=== PATIENT | female | born 1955 | race Caucasian/White ===

== ENCOUNTER 2019-11-22 09:27 | Outpatient (CLI) | payer OTHER, SELFPAY ==
--- NOTE | ~2019-11-22 | US_ITS ---
US thyroid INDICATION: Follow-up thyroid nodules previous benign biopsy of left thyroid nodules. TECHNIQUE: Real-time sonographic images of the thyroid gland were obtained. COMPARISON: Ultrasound dated 01/18/2019 FINDINGS: The right thyroid lobe measures 4.5 x 1.9 x 1.4 cm. The left thyroid lobe measures 4.7 x 2 .2 x 2.1 cm. There is normal echotexture and echogenicity throughout the thyroid gland. There are sta ble left thyroid nodules, largest measuring 2.5 x 2.3 x 1.7 cm and smaller measuring 1.3 x 1.3 x 1.1 cm.. Normal vascular flow is present. IMPRESSION: 1. Stable left thyroid nodules which were previously biopsied and proven benign. Reviewed, dictated and finalized at location A. IMPRESSION: 1. Stable left thyroid nodules which were previously biopsied and proven donald estrada
== END 2019-11-22 09:28 | disposition home or self-care (01) ==
PROVIDERS: PCP Family Medicine; Visit Provider Otolaryngology
DX: E04.1 Nontoxic single thyroid nodule (principal)
CPT/HCPCS: 76536

== ENCOUNTER 2020-01-03 15:58 | Outpatient (CLI) | payer OTHER, SELFPAY ==
--- NOTE | ~2020-01-03 | XR_ITS ---
EXAMINATION: XR shoulder LT min 2V DATE: 01/03/2020 16:18 INDICATION: Left shoulder pain. TECHNIQUE: 4 views of left shoulder were obtained. COMPARISON: None. FINDINGS: Bone alignment is normal. No fracture. There is mild osteoarthritis of glenohumeral joint a nd moderate osteoarthritis of acromioclavicular joint. Calcified pulmonary nodules are consistent wit h old granulomatous disease. IMPRESSION: 1. Polyarticular osteoarthritis. Reviewed, dictated and finalized at location A.
== END 2020-01-03 15:59 | disposition home or self-care (01) ==
PROVIDERS: PCP Family Medicine; Visit Provider Family Medicine
DX: M19.012 Primary osteoarthritis, left shoulder (principal)
CPT/HCPCS: 73030

== ENCOUNTER 2020-04-08 15:00 | Outpatient (RCR) | payer OTHER, SELFPAY ==
--- NOTE | 2020-02-13 17:26 | PTOPEVAL ---
PHYSICAL THERAPY EVALUATION AND PLAN OF CARE Thank you for referring Eleni Cormier to [facility].? The patient is scheduled to be seen for therapy?1-2x/week for 4-6 weeks. Range in frequency to accommodate patient's work schedule. Please review, sign, date and return this plan of care CARROLL. I agree with and certify that the following plan of care is medically necessary. Referring Physician Date Attending Provider: Tom Hardin MD Evaluation Diagnosis left shoulder pain Onset 06/2019 Subjective Information Eleni is here today reporting Query Text:As Reported By Patient/ left shoulder pain with pain Family that radiates to the upper arm. She had a cortisone injection that helped really well for 2 days and the pain returned with less intensity. She saw her chiropractor and that helped really but also the pain returned. She has significant pain while trying to sleep. She does not like to lift with the arm and she elevates that arm with caution. Self Report Pain Assessment Left Shoulder(s) Reported Pain Level 3 Pain Description Aching,Radiating Pain Radiation Left Arm Pain Frequency Chronic,Continuous Lowest Pain Intensity 2 Greatest Pain Intensity 10 Pain Aggravating Factors Lifting Pain Score Pain Score 3: Self Report Upper Extremity Range of Motion Scapular/ Shoulder Range of Motion Left Shoulder Flexion - Active 135 Shoulder Abduction - Active 85 Shoulder Medial Rotation - Active L2 Query Text:Reach Behind the Back Shoulder Lateral Rotation - Active 32 Scapular/Shoulder Range of Motion post treatment: flexion: Comments 155deg abductin: 140deg Upper Extremity Muscle Strength Testing Scapular/Shoulder Left Shoulder Flexion Strength 4- Good - Shoulder Abduction Strength 4- Good - Shoulder Medial Rotation Strength 3+ Fair + Shoulder Lateral Rotation Strength 4 Good Posture Thoracic Spine Posture Neutral Shoulder Posture (L) Rounded,(L) Forward Scapula Posture (L) Protracted Palpation significant trigger points noted to left upper trapezius and supraspinatus and middle and posterior deltoid Special Tests-Upper Extremity Shoulder Special Tests Empty Can (supraspinatus) Test Negative Left Painful Arc
--- NOTE | 2020-03-05 07:24 | PCPTNOTE ---
Patient called & cancelled scheduled appointment this date due to having to work.
--- NOTE | 2020-03-25 17:08 | PTOPEVAL ---
PHYSICAL THERAPY PLAN OF CARE UPDATE AND PROGRESS REPORT Thank you for referring Eleni Cormier to [facility].? The patient is scheduled to be seen for therapy? 2x/week for 4 weeks. Please review, sign, date and return this plan of care CARROLL. I agree with and certify that the following plan of care is medically necessary. 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 Self Report Pain Assessment Left Shoulder(s) Reported Pain Level 3 Pain Description Aching Pain Score Pain Score 3: Self Report Additional Pain Score Comments pain goes up and down Scapular/ Shoulder Range of Motion Left Shoulder Flexion - Active 140 Shoulder Abduction - Active 110 Shoulder Medial Rotation - Active L2 Query Text:Reach Behind the Back Shoulder Lateral Rotation - Active 60 Shoulder Lateral Rotation - Active T1 Query Text:Reach Behind the Head Scapular/Shoulder Range of Motion post treatment: flexion: Comments 155deg abductin: 140deg Upper Extremity Muscle Strength Testing Scapular/Shoulder Left Shoulder Flexion Strength 4- Good - Shoulder Abduction Strength 4- Good - Shoulder Medial Rotation Strength 4- Good - Shoulder Lateral Rotation Strength 4 Good Muscle Length Testing Muscle Length Testing Shoulder Internal Rotators Muscle Length (L) Moderate Tightness Shoulder External Rotators Muscle Length (L) Severe Tightness Pectoralis Major Muscle Length (L) Severe Tightness Palpation significant trigger points noted to left upper trapezius and supraspinatus; PT Clinical Summary Eleni is a 64 yo female participating in outpatient physical therapy with chronic left shoulder pain. She demonstrates progress toward meeting functional goals, but continues to be present with significant deficits, especially in abduction and internal rotation. We will continue PT 2x/week for 4 weeks. PT Services Indicated Yes [facility] [place]
--- NOTE | 2020-03-27 07:58 | PCPTNOTE ---
Pt cancelled appointment for 8:00, 03/27/2020 due to not feeling well/sick.
--- NOTE | 2020-04-10 16:53 | PCPTNOTE ---
Patient called & cancelled scheduled appointment this date per patient's request.
--- NOTE | 2020-04-23 14:10 | PCPTNOTE ---
Addendum entered by Loan Duarte, PT, DPT 04/23/20 14:47: Patient returned phone call and scheduled appointments. Original Note: Called and left voicemail to follow-up with patient about further appointments and scheduling.
--- NOTE | 2020-04-28 17:39 | PCPTNOTE ---
Patient did not show up for scheduled appointment this date. Called and informed her of missed appointment and that she has no further appointments scheduled. To please call back and discuss plan of care.
--- NOTE | 2020-05-07 13:50 | PCPTNOTE ---
This treatment is being continued on visit number [id number]. Please see documentation on both accounts to view progress. Completed interventions, outcomes, and problems have been marked as Inactive to facilitate the copying of the Care plan routine for recurring accounts.
== END 2020-05-07 09:18 | disposition home or self-care (01) ==
LOC: ANHPT 15:00
PROVIDERS: PCP Family Medicine; Visit Provider Orthopaedic Surgery
DX: M75.42 Impingement syndrome of left shoulder (principal)
CPT/HCPCS: 97110; 97140; 97161

== ENCOUNTER 2020-05-15 08:22 | Outpatient (RCR) | payer OTHER, SELFPAY ==
--- NOTE | 2020-05-07 13:50 | PCPTNOTE ---
The treatment documented on this account is a continuation of the treatment documented on visit number [id number]. Please see documentation on both accounts to view progress. The Plan of Care has been transitioned and updated within the new V#. I have addressed and agree with the discipline specific Problems, Interventions, and Goals for the current certification period. Completed interventions, outcomes, and problems have been marked as Inactive to facilitate the copying of the Care plan routine for recurring accounts.
--- NOTE | 2020-05-15 15:55 | PTOPEVAL ---
PHYSICAL THERAPY PLAN OF CARE UPDATE Thank you for referring Eleni Cormier to [facility].? The patient is scheduled to be seen for therapy? 1-2x/MONTH for 1month. Please review, sign, date and return this plan of care CARROLL. I agree with and certify that the following plan of care is medically necessary. Referring Physician Date Attending Provider: Tom Hardin MD Diagnosis left shoulder pain Onset 06/2019 Subjective Information Eelni reports she has been Query Text:As Reported By Patient/ working very hard on her Family exercises and feels like she is doing well. Continues to be very tight and still cannot unhook her bra in the back. Self Report Pain Assessment Left Shoulder(s) Reported Pain Level 2 Pain Description Aching,Tightness Pain Score Pain Score 2: Self Report Additional Pain Score Comments . Interventions Used Interventions Used By Clinicians Exercise,Manual Therapy Techniques Upper Extremity Range of Motion Scapular/ Shoulder Range of Motion Left Shoulder Flexion - Active 140 Shoulder Abduction - Active 135 Shoulder Medial Rotation - Active T12 Query Text:Reach Behind the Back Shoulder Lateral Rotation - Active 60 Upper Extremity Muscle Strength Testing Scapular/Shoulder Left Shoulder Flexion Strength 5 Normal Shoulder Abduction Strength 4+ Good + Shoulder Medial Rotation Strength 5 Normal Shoulder Lateral Rotation Strength 5 Normal Muscle Length Testing Muscle Length Testing Latissmus Dorsi Muscle Length (R) Moderate Tightness,(L) Moderate Tightness Pectoralis Minor Muscle Length (L) Severe Tightness Palpation significantly improved trigger points of left periscapular Manual Therapy Movement Direction Anterior-Posterior,Distraction Treatment Comments - Supine inferior glides on Query Text:Include Technique and GHJ at 90 deg abduction Result of Technique - Passive stretching into ER at 90 deg abduction with mobilization on GHJ - pectoralis deep tissue stretching -STM upper trapezius and pectoralis -MFR pectoralis major PT Clinical Summary Eleni is a 64 yo female participating in outpatient physical therapy with chronic left shoulder pain. She demonstrates progress toward meeting functional goals, but
--- NOTE | 2020-06-24 17:49 | PCPTNOTE ---
PHYSICAL THERAPY DISCHARGE NOTE Attending Provider: Tom Hardin MD Patient:Eleni Cormier Date of :1955 Patient has not returned for any further treatments since 05/15/2020, therefore she will be discharged at this time. Patient?s initial visit was on 02/13/2020. The goals have been (met, not met, partially met). Thank you for referring this patient to [facility]. Please review, sign, date and return this discharge summary CARROLL. I have been updated about the patient's current status and I agree with discharge from the above service at this time. Referring Physician Date
== END 2020-07-30 09:29 | disposition home or self-care (01) ==
LOC: ANHPT 08:22
PROVIDERS: PCP Family Medicine; Visit Provider Orthopaedic Surgery
DX: M75.42 Impingement syndrome of left shoulder (principal)
CPT/HCPCS: 97140

== ENCOUNTER 2020-09-23 15:30 | Outpatient (RCR) | payer OTHER, SELFPAY ==
[2020-09-02 15:05] VITALS: BP_SYST 95
--- NOTE | 2020-09-02 15:59 | PTOPEVAL ---
PHYSICAL THERAPY EVALUATION AND PLAN OF CARE 09-02-20 Thank you for referring Eleni Cormier to [facility] for the diagnosis of L shoulder impingement. She is scheduled to be seen for therapy? 2 x/week for 4 weeks. Please review, sign, date and return this plan of care CARROLL. I agree with and certify that the following plan of care is medically necessary. Referring Physician Date Attending Provider: Tom Hardin MD *PT Outpatient Evaluation Document 09/02/20 15:05 ALFREDO (Rec: 09/02/20 15:58 ALFREDO [id number]) Outpatient Past Medical History Past Medical History Source of Past Medical History Patient Neurological History Hx Migraine Yes: none for past 6 years Cardiovascular History Hx Cardiac Disorders No Significant History Respiratory History Hx Respiratory Disorders No Significant History Gastrointestinal History Hx Gastrointestinal Disorders No Significant History Musculoskeletal History Hx Other Musculoskeletal Disorders Yes: L shoulder pain Endocrine History Hx Endocrine Disorders No Significant History HEENT History Hx HEENT Disorders No Significant History Reproductive History Hx Hysterectomy Yes Other History Hx Other Medical Conditions Yes: vertigo- intermittent, ~ every 2 wks; Evaluation Information Problem Diagnosis L shoulder impingement Onset Jul 11, 2020 Subjective Information gradual increase in pain L Query Text:As Reported By Patient/ shoulder; no trauma or injury Family to shoulder; have been working more; previous PT here , had continued to do shoulder exercises at home: red theraband and stretching shoulder; Previous PT- helped with manual therapy, exercises; Diagnostic Tests X-Rays For This Problem Yes: December:OA of A-C joint MRI For This Problem No Prior Level of Function Activity Level (Last 3 Months) 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
--- NOTE | 2020-09-11 08:01 | PCPTNOTE ---
pt called and canceled today's appt;
--- NOTE | 2020-10-23 14:54 | PCPTNOTE ---
PHYSICAL THERAPY DISCHARGE 10-23-20 Attending Provider: Tom Hardin MD Patient:Eleni Cormier Date of :1955 Ms. Cormier has received 6 PT sessions for the diagnosis of L shoulder pain. She did not show the reevaluation today. I called her and she apologized, had forgotten about the appointment. Eleni stated she is doing well, is doing the exercises and does not need any more therapy. Therefore, she will be discharged at this time. The goals were not addressed. Thank you for referring [facility]. Please review, sign, date and return this discharge summary CARROLL. I have been updated about the patient's current status and I agree with discharge from the above service at this time. Referring Physician Date
== END 2020-10-24 13:42 | disposition home or self-care (01) ==
LOC: ANHPT 15:30
PROVIDERS: PCP Family Medicine; Visit Provider Orthopaedic Surgery
DX: M75.42 Impingement syndrome of left shoulder (principal)
CPT/HCPCS: 97110; 97140; 97161

== ENCOUNTER 2020-10-30 06:38 | Emergency (ER) | payer OTHER, SELFPAY ==
[2020-10-30] VITALS (20 sets, daily range): BP systolic 123–146; BP diastolic 63–75; PULSE 77–96; RESP 13–24; TEMP 37.2–37.4; O2SAT 94–100
--- NOTE | ~2020-10-30 | XR_ITS ---
EXAMINATION: XR chest 2V DATE: 10/30/2020 07:42 INDICATION: Shortness of breath TECHNIQUE: Frontal and lateral views of the chest are obtained COMPARISON: 08/17/2017 FINDINGS: The lungs are free of acute opacities. Calcified pulmonary nodules are consistent with old granulomatous disease. There is no pleural effusion or pneumothorax. The cardiomediastinal silhouett e is normal. There is moderate thoracic spondylosis. IMPRESSION: 1. No acute cardiopulmonary abnormality. Reviewed, dictated and finalized at location A.
--- NOTE | 2020-10-30 07:12 | ECG_ITS ---
Measurements Intervals Grants Rate: 80 P: 46 ID: [id number] QRS: 1 QRSD: 78 T: 15 QT: 338 QTc: 390 Interpretive Statements SINUS RHYTHM BASELINE ARTIFACT- I, III, AVR, AVL, AVF, V2 NORMAL ECG Electronically Signed On 10-30-2020 7:19:48 CDT by Felix Ulrich D.O.
--- NOTE | 2020-10-30 07:34 | PC.NURSE ---
Pt presents to ED with complaints of chest pain that radiates to lower back. Pt also complaining of non productive cough with chest pressure at midsternum. Pt states symptoms onset on and was seen by pcp on Tuesday and prescribed mucinex and a z-pack and advised to continue taking dual Aleve for pain and discomfort. Pt denies improvement in symptoms. Cough is intermittent and causes chest pain. Pt denies nausea, emesis, headache and visual disturbances at this time and afebrile. Vitals are stable and pt in no obvious distress at this time. Blood draws completed and sent to lab. Pt to radiology via cart.
--- NOTE | 2020-10-30 07:43 | PC.NURSE ---
EDMD presented to bedside. Pt noted to have diminished lung sounds bilaterally. O2 saturation 100% on room air and breathing is even and unlabored. Pt alert and oriented x4 and in no obvious distress. call button and personal items within reach. Pt advised to press call button for assistance.
--- NOTE | 2020-10-30 07:45 | ED.SOB ---
HPI - SOB/Dyspnea General Chief Complaint: Shortness of Breath/Dyspnea Stated Complaint: Shortness of breath Time Seen by Provider: 10/30/20 07:09 History of Present Illness HPI Narrative: URI symptoms for the past few days. Started as sinus pressure and congestion. Associated with significant post nasal drainage. Yesterday she began having dyspnea on exertion and wheezing. Dr. Becker started her on a Medrol dose pack yesterday. This morning her symptoms are worse, so she chose to come get checked out. No fever, chest pain, weakness, confusion. She is a former smoker. She received her COVID-19 vaccination a few months ago. Related Data Allergies Allergy/AdvReac Type Severity Reaction Status Date / Time metronidazole Allergy Severe VERTIGO, Verified 10/28/20 08:03 NAUSEA, VOMIT,RINGING OF EARS doxycycline Allergy Unknown Unknown Verified 10/28/20 08:03 METRONIDAZOLE HCL Allergy Severe VERTIGO, Uncoded 10/28/20 08:03 NAUSEA, VOMIT,RINGING OF EARS Review of Systems Review of Systems: All systems reviewed & are unremarkable except as noted in HPI and below Constitutional: Constitutional: Denies fever(s) Eyes: Eyes: Reports no additional eye complaints ENT: Denies dizziness and Reports nasal congestion Cardiovascular: Cardiovascular: Denies chest pain Respiratory: Respiratory: Reports chest congestion, Reports cough, Reports dyspnea and Reports wheezing Gastrointestinal: Gastrointestinal: Denies abdominal pain, Denies nausea and Denies vomiting Genitourinary: Genitourinary: Reports no additional female genitourinary complaints Musculoskeletal: Musculoskeletal: Reports no additional musculoskeletal complaints Neurologic: Reports system reviewed and no additional complaints, except as documented [facility] Past Medical History Medical History (Updated 10/30/20 @ 08:37 by Felix Irving MD) Elevated liver enzymes History of depression Hyperglyceridemia, pure Impacted cerumen of left ear Left arm pain Migraines Paresthesia of left arm Thyroid nodule Surgical History Surgical History Hx of hand surgery Social History Social History (Updated 10/28/20 @ 08:05 by Gardenia Duenas) Social History: Smoking packs per day: 0.75 Smoking cigarettes per day: 15.0 Years smoked: 40 Smoking pack-years: 30.00 Smoking status: Former smoker Tobacco type: cigarettes Second hand tobacco smoke exposure: No Smoking end date: 05/08/13 Alcohol intake: never Substance use: never Substance use type: does not use Gender identity (if verbalized by the patient): Female Exam Const: General: no acute distress and alert Orientation/consciousness: patient oriented x3 HENMT: Other: nasal mucosal edema. Eyes: Conjunctivae: conjunctivae normal Pupils: Equal, round and reactive pupils present EOM: EOMs intact bilaterally Neck: Neck: normal visual inspection Chest: Chest palpation & inspection: normal inspection of the chest Resp: Effort & Inspection: normal respiratory effort Auscultation: no crackles and wheezes Cardio: Rate: regular rate Rhythm: regular rhythm GI: GI Palp: Yes Soft to palpation and No Tenderness to palpation present (GI) Skin: General skin exam: normal color Neuro: General: patient oriented x3, moves all extremities, no focal motor deficits and CN's II-XI intact bilaterally Speech: normal speech Gait exam (Neuro): Normal gait present Extrem: General: normal to inspection and no edema Psych: Mental Status: mental status grossly normal Affect: normal affect Attitude: cooperative Thought content: Yes Normal thought content present Course Vital Signs Vital signs: Vital Signs Pulse Rate 80 10/30/20 06:56 Respiratory Rate 13 10/30/20 06:56 Temperature 37.2 C 10/30/20 07:32 Pulse Rate 82 10/30/20 09:30 Respiratory Rate 16 10/30/20 09:30 Blood Pressure
[2020-10-30] MEDS: IPRATROPIUM BR 0.02% INH SOLN 0.5 MG/2.5 ML VIAL INHALATION ×2 (07:55→08:53)
[2020-10-30] MEDS: ALBUTEROL SULFATE NEB 2.5 MG/0.5 ML INH 5 MG INHALATION ×2 (07:55→08:53)
[2020-10-30 07:57] LABS: Basophils Absolute Auto 0.1 K/mm3 (0.0-0.1); Basophils Percent Auto 0.5 % (0.2-1.2); Eosinophils Absolute Auto 0.2 K/mm3 (0-0.3); Eosinophils Percent Auto 2.1 % (0-4.4); Hematocrit 40.6 % (37.0-47.0); Hemoglobin 13.3 g/dL (12.0-15.0); Immature Granulocyte Absolute 0.04 K/mm3 (0.00-0.031); Immature Granulocyte Percent A 0.4 % (0-0.5); Lymphocytes Percent Auto 14.5 % (18.3-44.2); Mean Corpuscular HGB Conc 32.8 g/dl (32-36); Mean Corpuscular Hemoglobin 28.4 pg (26-34); Mean Corpuscular Volume 86.6 fl (80-100); Mean Platelet Volume 9.6 fl (7.4-10.4); Monocytes Absolute Auto 0.9 K/mm3 (0.1-0.6); Monocytes Percent Auto 8.2 % (2.6-8.5); Neutrophils Absolute Auto 7.7 K/mm3 (1.3-6.7); Neutrophils Percent Auto 74.3 % (45.5-73.1); Platelet Count Result 244 k/mm3 (150-375); Red Blood Count 4.69 M/mm3 (4.2-5.4); Red Cell Distribution Width 13.3 % (11.5-14.5); White Blood Count 10.4 K/mm3 (4.5-10.0)
[2020-10-30 08:01] LABS: Lactic Acid Reflex 1.1 mmol/L (0.7-2.1)
[2020-10-30 08:02] LABS: Anion Gap 6 mmol/L (8-16); Blood Urea Nitrogen 13 mg/dL (7-17); Calcium 9.2 mg/dL (8.4-10.2); Carbon Dioxide 29 mmol/L (22-30); Chloride 103 mmol/L (98-107); Estimated Glomerular Filt Rate > 60; Glucose 106 mg/dL (65-105); Potassium 4.5 mmol/L (3.4-5.0); Sodium 138 mmol/L (137-145)
[2020-10-30 08:13] LABS: Troponin I < 0.012 ng/mL (0.000-0.034)
== END 2020-10-30 09:30 | disposition home or self-care (01) ==
PROVIDERS: Emergency Provider Emergency Medicine; PCP Family Medicine
DX: J20.9 Acute bronchitis, unspecified (principal); E78.1 Pure hyperglyceridemia; Z87.891 Personal history of nicotine dependence
CPT/HCPCS: 36415; 71046; 80048; 83605; 84484; 85025; 87040; 87804; 93005; 94640; 99284

== ENCOUNTER 2020-11-18 13:06 | Outpatient (CLI) | payer OTHER, SELFPAY ==
--- NOTE | ~2020-11-18 | US_ITS ---
US thyroid INDICATION: Follow-up thyroid nodules TECHNIQUE: Real-time sonographic images of the thyroid gland were obtained. COMPARISON: Comparison to multiple prior studies sequentially, with oldest reviewed study dated 01/18. FINDINGS: The right thyroid lobe measures 3 x 1.1 x 1.4 cm. The left thyroid lobe measures 4.7 x 1.7 x 1.6 cm. Thyroid gland is diffusely heterogeneous. There are multiple bilateral thyroid nodules. La rgest in the right lobe is isoechoic measuring 9 x 9 x 8 mm. This mass is solid, hyperechoic, wider t villalta tall, ill-defined margins without definite calcifications, TR 3. Largest in the left lobe measure s 2.2 x 2 x 1.5 cm which has diminished in size compared with prior examinations. This mass is solid, hypoechoic, wider than tall, smoothly marginated without calcifications, TR 4. Per clinical history this mass was previously biopsy proven benign. IMPRESSION: 1. Stable or diminished size of bilateral thyroid nodules, compatible with multinodular goiter. Reviewed, dictated and finalized at location A. IMPRESSION: 1. Stable or diminished size of bilateral thyroid nodules, compatible with mul tinodular goiter.
== END 2020-11-18 13:07 | disposition home or self-care (01) ==
LOC: ANHIMG 13:11
PROVIDERS: PCP Family Medicine; Visit Provider Otolaryngology
DX: E04.2 Nontoxic multinodular goiter (principal)
CPT/HCPCS: 76536

== ENCOUNTER 2020-12-20 07:41 | Outpatient (CLI) | payer OTHER, SELFPAY ==
--- NOTE | ~2020-12-20 | MM_ITS ---
EXAMINATION: MM screening tim BI w jocelynn HISTORY: Screening TECHNIQUE: Craniocaudal and mediolateral oblique 3-D tomosynthesis images were obtained and synthetic 2-D images were generated. CAD analysis was submitted and interpreted. COMPARISON: No prior mammogram is available for comparison at this institution. 08/05/2015 BREAST PARENCHYMAL COMPOSITION: There are scattered areas of fibroglandular density. FINDINGS: There is a new small mass in the medial aspect of the left breast anteriorly. The right aramis ast is stable without evidence for malignancy. IMPRESSION: 1. New circumscribed left breast mass central medial aspect of the left breast. 2. Additional mammographic views and possible breast ultrasound are recommended. BI-RADS Category 0: Incomplete: Needs additional imaging evaluation. Reviewed, dictated and finalized at location A. IMPRESSION: 1. New circumscribed left breast mass central medial aspect of the left breast. 2. Additional mammographic views and possible breast ultrasound are recommended . BI-RADS Category 0: Incomplete: Needs additional imaging evaluation.
== END 2020-12-20 07:42 | disposition home or self-care (01) ==
LOC: ANHLAB 07:44 → ANHIMG 07:45
PROVIDERS: PCP Family Medicine; Visit Provider Family Medicine
DX: Z12.31 Encounter for screening mammogram for malignant neoplasm of breast (principal); R92.8 Other abnormal and inconclusive findings on diagnostic imaging of breast
CPT/HCPCS: 77063; 77067

== ENCOUNTER 2020-12-26 13:02 | Outpatient (CLI) | payer OTHER, MEDICARE, SELFPAY ==
--- NOTE | ~2020-12-26 | MM_ITS ---
EXAMINATION: MM diagnostic mammo unilat LT HISTORY: Follow-up left breast mass TECHNIQUE: Additional 3-D tomosynthesis images of the left breast were performed and synthetic 2-D im ages were generated. CAD analysis was submitted and interpreted. COMPARISON: 12/20/2020 BREAST PARENCHYMAL COMPOSITION: Breast composed of scattered areas of fibroglandular density FINDINGS: There is a small circumscribed mass in the medial aspect of the left breast measuring 3 mm. There are no suspicious calcifications or architectural distortion. IMPRESSION: 1. Left breast mass measuring 3 mm, medial aspect of the left breast. 2. Recommend Limited left breast ultrasound BI-RADS Category 0: Incomplete: Needs additional imaging evaluation. Reviewed, dictated and finalized at location A.
== END 2020-12-26 13:03 | disposition home or self-care (01) ==
PROVIDERS: PCP Family Medicine; Visit Provider Nurse Practitioner Family
DX: N63.20 Unspecified lump in the left breast, unspecified quadrant (principal); R92.8 Other abnormal and inconclusive findings on diagnostic imaging of breast
CPT/HCPCS: 77065

== ENCOUNTER 2021-01-20 09:01 | Outpatient (CLI) | payer OTHER, MEDICARE, SELFPAY ==
--- NOTE | ~2021-01-20 | US_ITS ---
US breast LT limited DATE: 01/20/2021 09:31 INDICATION: 3 mm new medial left breast mass on 12/26/2020 screening mammogram TECHNIQUE: High-resolution ultrasound imaging of the medial left breast from 6:00 to 12:00 COMPARISON: 08/05/2005 and 12/20/2020 bilateral digital screening mammogram examinations 12/26/2020 diagnostic left mammogram FINDINGS: At 9:00 2 cm from nipple there is an approximately 3.3 mm mildly irregular hypoechoic lesio n. No internal vascularity or posterior features are noted. Through transmission and posterior enhanc ement is not demonstrated. I would recommend ultrasound-guided attempted cyst aspiration at this location; if this does not succ essfully aspirate, then ultrasound-guided biopsy should be performed at that time. No suspicious mass or shadowing is noted elsewhere in the upper inner or lower inner left breast. IMPRESSION: 3.3 mm mildly irregular hypoechoic lesion at 9:00 2 cm from nipple Recommendation: Ultrasound-guided aspiration attempt; if this does not successfully completely resolv e with aspiration, then ultrasound-guided biopsy is recommended BI-RADS Category 4: Suspicious abnormality On 01/20/[address] Nesbitt telephoned the report and ultrasound-guided aspiration and if nec essary biopsy recommendation to Viridiana Henrandes. Reviewed, dictated and finalized at [facility]. Reviewed, dictated and finalized at location [facility]. IMPRESSION: 3.3 mm mildly irregular hypoechoic lesion at 9:00 2 cm from nipple Recommendation: Ultrasound-guided aspiration attempt; if this does not successf ully completely resolve with aspiration, then ultrasound-guided biopsy is recom mended BI-RADS Category 4: Suspicious abnormality On 01/20/[address] Nesbitt telephoned the report and ultrasound-guided aspiration and if necessary biopsy recommendation to Viridiana Hernandes.
== END 2021-01-20 09:02 | disposition home or self-care (01) ==
PROVIDERS: PCP Family Medicine; Visit Provider Nurse Practitioner Family
DX: N63.20 Unspecified lump in the left breast, unspecified quadrant (principal); R92.8 Other abnormal and inconclusive findings on diagnostic imaging of breast
CPT/HCPCS: 76642

== ENCOUNTER 2021-02-09 09:16 | Outpatient (CLI) | payer OTHER, MEDICARE, SELFPAY ==
--- NOTE | ~2021-02-09 | US_ITS ---
EXAMINATION: Consultation US INDICATION: Patient presents for left breast cyst aspiration TECHNIQUE: Limited left breast ultrasound is performed. COMPARISON: 01/20/2021 FINDINGS: There is a 3 mm x 2 mm oval, circumscribed, parallel, anechoic mass with no posterior featu res or internal vascularity at the 9:00 location 2 cm from the nipple. It was discussed with the fito ent that this is a probable cyst and that short-term interval follow-up could be performed. IMPRESSION: 1. Probable left breast cyst. Follow-up diagnostic left mammogram and ultrasound in six months are re commended. BI-RADS category 3, probably benign findings. Reviewed, dictated and finalized at location [facility]. IMPRESSION: 1. Probable left breast cyst. Follow-up diagnostic left mammogram and ultrasoun d in six months are recommended. BI-RADS category 3, probably benign findings.
== END 2021-02-09 09:17 | disposition home or self-care (01) ==
PROVIDERS: PCP Family Medicine; Visit Provider Nurse Practitioner Family
DX: N63.20 Unspecified lump in the left breast, unspecified quadrant (principal)
CPT/HCPCS: 99199

== ENCOUNTER 2021-02-16 16:44 | Emergency (ER) | payer OTHER, MEDICARE, SELFPAY ==
--- NOTE | ~2021-02-16 | XR_ITS ---
XR chest 2V DATE: 02/16/2021 17:30 INDICATION: Cough, shortness of breath TECHNIQUE: PA and lateral views COMPARISON: 10/30/2020 PA and lateral chest FINDINGS: Normal heart size. No hilar or mediastinal enlargement. 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 There is patchy by lateral infiltrate and/atelectasis at the lung bases, involving the lower lobes. No pleural effusion or pulmonary vascular congestion or pneumothorax. IMPRESSION: Bibasilar infiltrate and/or atelectasis. Considerable bilateral basilar pneumonia, aspira tion pneumonitis. Reviewed, dictated and finalized at location [facility]. IMPRESSION: Bibasilar infiltrate and/or atelectasis. Considerable bilateral bas ilar pneumonia, aspiration pneumonitis.
[2021-02-16 16:51] VITALS: BP 135/73; PULSE 80; RESP 16; TEMP 37.5; O2SAT 98
--- NOTE | 2021-02-16 17:08 | ED.GENADULT ---
HPI - General Adult General Chief complaint: Upper Respiratory Infection Stated complaint: chest pain/cough/drainage Source: patient Mode of arrival: ambulatory Limitations: no limitations History of Present Illness HPI narrative: Patient is a 65-year-old female presents to urgent care via POV for evaluation of upper respiratory symptoms that have been present for 2 weeks. Additionally, she reports productive cough, myalgias, chest pain with deep inspiration, and shortness of breath. She she also reports sputum production is small in quantity and clear in color. No relief with DayQuil or Advil. He nothing improves symptoms and lying down worsens symptoms. Denies known exposure to sick contacts. She had a negative Covid test October 2020. She was diagnosed with acute bronchitis at that time. She reports she is fully vaccinated against Covid. Of note, patient reports history of tobacco use. Related Data Allergies Allergy/AdvReac Type Severity Reaction Status Date / Time metronidazole Allergy Severe VERTIGO, Verified 02/16/21 16:56 NAUSEA, VOMIT,RINGING OF EARS doxycycline Allergy Unknown Unknown Verified 02/16/21 16:56 METRONIDAZOLE HCL Allergy Severe VERTIGO, Uncoded 02/16/21 16:56 NAUSEA, VOMIT,RINGING OF EARS Review of Systems Review of Systems: Denies history of COPD, chronic bronchitis, asthma, and pneumonia. Denies current tobacco use. Pertinent negatives: fever, sweats, chills, change in appetite, fatigue, skin color changes, headache, nasal congestion/discharge, dizziness, lymphadenopathy, sinus problems, ear pain/drainage, heart murmurs, heart palpitations, shortness of breath, wheezing, cyanosis, hemoptysis, hoarseness, orthopnea, nausea, vomiting, and diarrhea PMF Past Medical History Medical History (Updated 02/16/21 @ 18:18 by NIKKI Wooten, BC) Elevated liver enzymes History of depression Hyperglyceridemia, pure Impacted cerumen of left ear Left arm pain Migraines Paresthesia of left arm Thyroid nodule Surgical History Surgical History Hx of hand surgery Social History Social History Social History: Smoking packs per day: 0.75 Smoking cigarettes per day: 15.0 Years smoked: 40 Smoking pack-years: 30.00 Smoking status: Former smoker Tobacco type: cigarettes Second hand tobacco smoke exposure: No Smoking end date: 05/08/13 Alcohol intake: never Substance use: never Substance use type: does not use Gender identity (if verbalized by the patient): Female Comments I have reviewed and agree with the patient's past medical, surgical, social, and family hx as documented by the RN. There is no relevant family history pertinent to the presenting complaint. Exam Narrative: GENERAL: Well-appearing, well-nourished, and in no acute distress. HEAD: Normocephalic, atraumatic. No sinus tenderness or facial swelling appreciated. EYES: PERRLA and EOMI. No evidence of erythema, swelling, or drainage. ENT: Bilateral external ears and ear canals normal. Bilateral TMs are normal.No TM perforation. Nares clear, no rhinorrhea or epistaxis. Bilateral turbinates without erythema/ swelling. Mucous membranes moist and pink. Uvula is midline without erythema and swelling. No evidence of petechial rash, cobblestoning, lesions, ulcers, erythema, swelling, exudates, peritonsillar abscess, tenting, or drooling. Breath odor and voice normal. NECK: Supple. No Lymphadenopathy or nuchal rigidity appreciated. CHEST: Bilateral lung germain are clear to auscultation. No respiratory distress. Moderate cough and pleuritic cp upon examination. HEART: Regular rate and rhythm. No murmur, gallop, or rub heard. EXTREMITIES: Normal range of motion. No edema. SKIN: Warm, dry, no rash. NEURO: No focal deficits. Alert and oriented x3. Course
--- NOTE | 2021-02-16 17:14 | ECG_ITS ---
Measurements Intervals [place] Rate: 76 P: 24 WV: 146 QRS: 14 QRSD: 83 T: 13 QT: 343 QTc: 386 Interpretive Statements SINUS RHYTHM EARLY PRECORDIAL R/S TRANSITION BORDERLINE ECG Electronically Signed On 02-17-2021 7:46:31 CDT by Felix Ulrich D.O.
[2021-02-16] MEDS: cefTRIAXone 1 GM VIAL IM (18:14)
== END 2021-02-16 18:30 | disposition home or self-care (01) ==
PROVIDERS: Emergency Provider Nurse Practitioner Family; PCP Family Medicine
DX: J18.9 Pneumonia, unspecified organism (principal); Z87.891 Personal history of nicotine dependence
CPT/HCPCS: 71046; 93005; 96372; 99213; G0463; J0696

== ENCOUNTER 2021-10-05 13:46 | Outpatient (CLI) | payer OTHER, MEDICARE, SELFPAY ==
--- NOTE | ~2021-10-05 | MMUS_ITS ---
EXAMINATION: MM diagnostic tim BI w jocelynn, US breast LT limited HISTORY: Follow-up of 3.3 mm mildly irregular hypoechoic lesion at 9:00 2 cm from nipple, noted on Limited left breast ultrasound TECHNIQUE: Additional 3-D tomosynthesis images of were performed and synthetic 2-D images were genera rich. CAD analysis was submitted and interpreted. High resolution breast ultrasound was performed. COMPARISON: 01/20/2021 Limited left breast ultrasound 12/26/2020 diagnostic left mammogram 12/20/2020 bilateral screening mammogram BREAST PARENCHYMAL COMPOSITION: There are scattered areas of fibroglandular density. FINDINGS: MAMMOGRAPHIC FINDINGS: Stable or slightly smaller circumscribed approximately 3 mm opacity in the anterior aspect of the inn er mid left breast at approximately 9:00. No suspicious mass, architectural distortion, malignant calcification, skin thickening or retraction or significant new or developing density of either breast is detected otherwise. ULTRASOUND: There is a mildly irregular antiparallel up to 1.5 mm wide and 2.8 mm vertical dimension mass at 9:00 2 cm from the nipple. The mildly irregular margins and the antiparallel configuration are suspicious. Ultrasound-guided bio psy is recommended. IMPRESSION: 1. Mildly irregular and typed parallel 0.5 x 2.7 mm lesion at 9:00 2 cm from nipple 2. Either continued 6 month diagnostic mammogram and ultrasound follow-up for ultrasound-guided biops y is recommended. BI-RADS category 4, suspicious findings. ; Alternatively, 6 month follow-up diagnostic mammogram and left breast ultrasound would be an altern ative. Reviewed, dictated and finalized at location [facility]. IMPRESSION: 1. Mildly irregular and typed parallel 0.5 x 2.7 mm lesion at 9:00 2 cm from ni pple 2. Either continued 6 month diagnostic mammogram and ultrasound follow-up for u ltrasound-guided biopsy is recommended. BI-RADS category 4, suspicious findings. ; Alternatively, 6 month follow-up diagnostic mammogram and left breast ultraso und would be an alternative.
== END 2021-10-05 13:47 | disposition home or self-care (01) ==
LOC: ANHIMG 13:47
PROVIDERS: PCP Family Medicine; Visit Provider Physician Assistant
DX: R92.8 Other abnormal and inconclusive findings on diagnostic imaging of breast (principal)
CPT/HCPCS: 76642; 77062; 77066; G0279

== ENCOUNTER 2022-02-09 11:10 | Outpatient (CLI) | payer MEDICARE, SELFPAY ==
[2022-02-09 11:42] LABS: Hematocrit 43.9 % (37.0-47.0); Hemoglobin 14.2 g/dL (12.0-15.0); Mean Corpuscular HGB Conc 32.3 g/dl (32-36); Mean Corpuscular Hemoglobin 28.6 pg (26-34); Mean Corpuscular Volume 88.5 fl (80-100); Mean Platelet Volume 9.6 fl (7.4-10.4); Platelet Count Result 235 k/mm3 (150-375); Red Blood Count 4.96 M/mm3 (4.2-5.4); Red Cell Distribution Width 13.6 % (11.5-14.5); White Blood Count 6.8 K/mm3 (4.5-10.0)
[2022-02-09 11:56] LABS: Alanine Aminotransferase 36 U/L (6-35); Albumin Level 4.4 g/dL (3.5-5.1); Alkaline Phosphatase 75 U/L (38-126); Anion Gap 9 mmol/L (8-16); Aspartate Amino Transferase 47 U/L (14-36); Bilirubin,Total 0.4 mg/dL (0.2-1.3); Blood Urea Nitrogen 13 mg/dL (7-17); Calcium 9.5 mg/dL (8.4-10.2); Carbon Dioxide 29 mmol/L (22-30); Chloride 99 mmol/L (98-107); Cholesterol 248 mg/dL (0-200); Estimated Glomerular Filt Rate > 60; Glucose 100 mg/dL (65-110); HDL Direct 35 mg/dL; Sodium 137 mmol/L (137-145); Triglycerides 290 mg/dL (<150)
[2022-02-09 12:07] LABS: LDL Cholesterol Direct 127 mg/dL
[2022-02-09 12:26] LABS: Appearance Urine Clear (Clear); Bilirubin Urine Negative (Negative); Blood Urine Negative (Negative); Color Urine Yellow (Yellow); Glucose Urine UA Negative (Negative); Ketones Urine Negative (Negative); Leukocyte Esterase Ur Negative LEU/UL (NEGATIVE); Nitrate Urine Negative (Negative); Protein Urine Negative (Negative); Urobilinogen Urine 0.2 mg/dL (<2.0)
[2022-02-09 12:28] LABS: Add Urine Microscopic? NO
[2022-02-09 13:00] LABS: Folic Acid 8.6 ng/mL (2.76->20)
== END 2022-02-09 11:11 | disposition home or self-care (01) ==
PROVIDERS: PCP Family Medicine; Visit Provider Family Medicine
DX: R41.3 Other amnesia (principal); R53.83 Other fatigue; N39.0 Urinary tract infection, site not specified; E78.5 Hyperlipidemia, unspecified
CPT/HCPCS: 36415; 80053; 80061; 81003; 82607; 82746; 84443; 85027

== ENCOUNTER 2022-04-15 11:35 | Outpatient (CLI) | payer MEDICARE, SELFPAY ==
--- NOTE | ~2022-04-15 | MMUS_ITS ---
EXAMINATION: MM diagnostic tim BI w jocelynn, US breast LT limited HISTORY: Follow-up left breast mass TECHNIQUE: Additional 3-D tomosynthesis images of the breasts were performed and synthetic 2-D images were generated. CAD analysis was submitted and interpreted. High resolution Limited left breast ultr asound was performed. COMPARISON: Comparison to multiple prior studies sequentially, with oldest reviewed study dated 12/20. BREAST PARENCHYMAL COMPOSITION: BREAST PARENCHYMAL COMPOSITION: There are scattered areas of fibroglandular density. FINDINGS: MAMMOGRAPHIC FINDINGS: The breasts are stable. No new masses, calcifications or architectural distortion in either breast to suggest malignancy. ULTRASOUND: Limited left breast ultrasound: At 9:00, 2 cm from the nipple, there is a 4 mm simple cyst which anisa esponds to the mammographic nodule. No suspicious solid masses are identified to suggest malignancy. IMPRESSION: 1. No evidence for malignancy in either breast. Benign finding. 2. Routine yearly screening mammogram and regular clinical breast examination are recommended. BI-RADS Category 2: Benign finding(s). Reviewed, dictated and finalized at location [facility]. IMPRESSION: 1. No evidence for malignancy in either breast. Benign finding. 2. Routine yearly screening mammogram and regular clinical breast examination a re recommended. BI-RADS Category 2: Benign finding(s).
== END 2022-04-15 11:36 | disposition home or self-care (01) ==
PROVIDERS: PCP Family Medicine; Visit Provider Physician Assistant
DX: R92.8 Other abnormal and inconclusive findings on diagnostic imaging of breast (principal); N63.20 Unspecified lump in the left breast, unspecified quadrant
CPT/HCPCS: 76642; 77062; 77066; G0279

== ENCOUNTER 2022-10-27 17:11 | Outpatient (CLI) | payer MEDICARE, SELFPAY ==
--- NOTE | ~2022-10-27 | XR_ITS ---
Right wrist Technique: PA, oblique, lateral, and ulnar deviation views were obtained. Clinical History: Injury Findings: No acute fracture or dislocation is seen. Possible prior resection of the trapezium. Remain ing joint spaces appear intact. Soft tissues are unremarkable. Impression: No fracture or dislocation evident. Possible prior resection of the trapezium. Correlate with any relevant clinical/surgical history. Reviewed, dictated and finalized at location . Impression: No fracture or dislocation evident. Possible prior resection of the trapezium. Correlate with any relevant clinical /surgical history.
== END 2022-10-27 17:12 | disposition home or self-care (01) ==
PROVIDERS: PCP Family Medicine; Visit Provider Physician Assistant
DX: S69.91XA Unspecified injury of right wrist, hand and finger(s), initial encounter (principal); X58.XXXA Exposure to other specified factors, initial encounter
CPT/HCPCS: 73110

== ENCOUNTER 2022-10-29 11:47 | Outpatient (CLI) | payer MEDICARE, SELFPAY ==
--- NOTE | ~2022-10-29 | XR_ITS ---
EXAMINATION: XR wrist RT min 3V, XR finger 5th RT min 2V, XR forearm RT 2V, XR finger 4th RT min 2V, XR hand RT min 3V DATE: 10/29/2022 12:15 INDICATION: Lateral sided pain of the distal right arm TECHNIQUE: 1. AP and lateral views of the right forearm were obtained. 2. Posteroanterior, ulnar deviation, oblique, and lateral views of the affected wrist were obtained. 3. Posteroanterior, oblique and lateral views of the right hand were obtained. 4. Dorsal palmar and lateral views of the right fourth digit were obtained. 5. Dorsal palmar and lateral views of the right fifth digit were obtained. COMPARISON: none FINDINGS: Postoperative change of prior right first carpal metacarpal suspension arthroplasty with resection of the trapezium. There is a residual small corticated bone fragment near the dorsal base of the first metacarpal. There is mild proximal migration of the first metacarpal into the resection bed. Alignmen t is otherwise normal from the right elbow through the right hand. No fractures. Polyarticular osteoa rthritis, moderate severity at the second, third and fifth distal interphalangeal joints and mild at the right elbow, distal radioulnar, triscaphe, first-third metacarpophalangeal and remaining interpha langeal joints. No cortical erosions or periosteal reaction. Soft tissues are unremarkable. No elbow joint effusion. IMPRESSION: 1. 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 2. Postoperative change of a first carpal metacarpal suspension arthroplasty with resection of the tr apezium. Reviewed, dictated and finalized at location [facility]. IMPRESSION: 1. 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 2. Postoperative change of a first carpal metacarpal suspension arthroplasty wi th resection of the trapezium. IMPRESSION: 1. 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 2. Postoperative change of a first carpal metacarpal suspension arthroplasty wi th resection of the trapezium. IMPRESSION: 1. 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 2. Postoperative change of a first carpal metacarpal suspension arthroplasty wi th resection of the trapezium. IMPRESSION: 1. 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 2. Postoperative change of a first carpal metacarpal suspension arthroplasty wi th resection of the trapezium.
== END 2022-10-29 11:48 | disposition home or self-care (01) ==
PROVIDERS: PCP Family Medicine; Visit Provider Physician Assistant
DX: M19.021 Primary osteoarthritis, right elbow (principal); M19.041 Primary osteoarthritis, right hand; M19.031 Primary osteoarthritis, right wrist
CPT/HCPCS: 73090; 73110; 73130; 73140

== ENCOUNTER → 2023-04-14 13:56 | Outpatient (CLI) | payer MEDICARE, SELFPAY ==
--- NOTE | ~2023-04-14 | MR_ITS ---
MRI of the cervical spine Clinical History: Spondylosis Technique: Axial T2-weighted and gradient images, and sagittal T1-weighted, T2-weighted, and STIR lyubov ges were acquired. Findings: No fracture seen. There is minimal grade 1 retrolisthesis of C6 over C7. There is straighte vivek of the normal cervical lordosis. No suspicious bone marrow signal abnormality seen. At C2-C3, there is minimal disc osteophyte complex. There is probable minimal foraminal narrowing rel ated to left facet arthropathy. Right neural foramen preserved. No central canal stenosis or cord com pression. At C3-C4, there is mild disc osteophyte complex, resulting in mild canal stenosis and minimal flatten ing the ventral cord. There is right facet arthropathy with right neural foraminal narrowing. Left ne ural foramen and minimally narrowed. At C4-C5, there is minimal disc osteophyte complex. There is probable mild right neural foraminal ronak rowing with right facet hypertrophy. No central canal stenosis or cord compression. At C5-C6, there is minimal disc osteophyte complex. There is bilateral facet arthropathy with bilater al neural foraminal narrowing. No central canal stenosis or cord compression. At C6-C7, there is disc osteophyte complex with mild canal stenosis and mild flattening the ventral c ord. There is bilateral neural foraminal narrowing. No abnormal signal seen in the spinal cord. Paravertebral soft tissues are unremarkable. Impression: Moderate degenerative spondylosis, as detailed above. Minimal grade 1 retrolisthesis of C6 over C7. Reviewed, dictated and finalized at [facility]. Impression: Moderate degenerative spondylosis, as detailed above. Minimal grade 1 retrolisthesis of C6 over C7.
== END ==
PROVIDERS: PCP Family Medicine; Visit Provider Orthopaedic Surgery
DX: M47.22 Other spondylosis with radiculopathy, cervical region (principal)
CPT/HCPCS: 72141

== ENCOUNTER 2023-04-18 07:11 | Outpatient (CLI) | payer MEDICARE, SELFPAY ==
--- NOTE | ~2023-04-18 | DEXA_ITS ---
Bone Density Report Name: ELIZABETH BROOKS Age: 67 Sex: Female Ethnicity: White Date of : 1955 Indication: postmenopausal; screening for osteoporosis; height loss; hysterectomy; Referring Provider: AMELIA ACOSTA Study: Bone densitometry was performed. Exam Date: April 18, 2023 Accession number: [id number] Bone Density: Region BMD T-score Z-score Classification AP Spine(L1-L4) 0.941 -1.0 1.0 Normal Femoral Neck (Left) 0.609 -2.2 -0.5 Osteopenia Total Hip (Left) 0.809 -1.1 0.3 Osteopenia Femoral Neck (Right) 0.664 -1.7 0.0 Osteopenia Total Hip (Right) 0.821 -1.0 0.4 Normal Total Hip Mean 0.815 -1.1 0.4 Osteopenia World Health Organization criteria for BMD impression classify patients as: Normal (T-score at or above -1.0), Osteopenia (T-score between -1.0 and -2.5), or Osteoporosis (T-score at or below -2.5). 10-year Fracture Risk(1): Major Osteoporotic Fracture 11% Hip Fracture 2.0% Reported Risk Factors: [place] (), Neck BMD=0.609, BMI=30.6 (1) FRAX(R) Version 3.08. Fracture probability calculated for an untreated patient. Fracture probability may be lower if the patient has received treatment. Clinical Information Provided by Patient: Has the following medical conditions: Hysterectomy Patient maximum height was 62 Menopause Age: 29 No regular weight bearing exercise Does not regularly consume dairy products Drinks caffeinated beverages Onset of menses at age 14 Number of children 2 Impression: The patient has low bone mass, based on the Left Femoral Neck T-score. The patient has an estimated ten-year risk of hip fracture of 2% and an estimated ten-year risk of major fracture of 11%, based on the WHO FRAX algorithm. Discussion: BONE DENSITY IS LOW AT ONE OR MORE SKELETAL SITES. This patient's lowest T-score is low at one or more skeletal sites. It meets the World Health Organization's (WHO) criteria for ?low bone mass? (T-score between -1.0 and -2.5). The patient's 10-year risk of fracture as calculated by FRAX is less than the threshold where pharmacological therapy is recommended by the National Osteoporosis Foundation (NOF). However, all treatment decisions require clinical judgment and consideration of individual patient factors, including patient preferences, comorbidities, previous drug use, risk factors not captured in the FRAX model (e.g., frailty, falls, vitamin D deficiency, increased bone turnover, interval significant decline in bone density) and possible under or overestimation of fracture risk by FRAX. The patient should follow a healthful lifestyle (good nutrition with adequate calcium and vitamin D, and appropriate weight-bearing exercise). Follow-Up: Consider repeating this study in 2 to 3 years to reassess this patient's status, or sooner i
--- NOTE | ~2023-04-18 | MM_ITS ---
EXAMINATION: MM screening tim BI w jocelynn HISTORY: Screening mammogram TECHNIQUE: Craniocaudal and mediolateral oblique 3-D tomosynthesis images were obtained and synthetic 2-D images were generated. CAD analysis was submitted and interpreted. COMPARISON: 04/15/2022 diagnostic bilateral mammogram and limited left breast ultrasound 10/05/2021 diagnostic bilateral mammogram and limited left breast ultrasound 12/26/2020 diagnostic left mammogram and limited left breast ultrasound 12/20/2020 bilateral screening mammogram BREAST PARENCHYMAL COMPOSITION: The breasts are almost entirely fatty. FINDINGS: Occasional benign calcifications. There is no evidence of suspicious mass, calcification, o r architectural distortion to suggest malignancy in either breast. There has been no suspicious inter ambrosio change. IMPRESSION: 1. No mammographic evidence of malignancy. 2. Recommend routine screening mammography in one year. BI-RADS Category 2: Benign finding(s). Reviewed, dictated and finalized at location A.
== END 2023-04-18 07:12 | disposition home or self-care (01) ==
PROVIDERS: PCP Family Medicine; Visit Provider Physician Assistant
DX: Z12.31 Encounter for screening mammogram for malignant neoplasm of breast (principal); Z78.0 Asymptomatic menopausal state; M85.852 Other specified disorders of bone density and structure, left thigh; M85.851 Other specified disorders of bone density and structure, right thigh
CPT/HCPCS: 77063; 77067; 77080

== ENCOUNTER → 2023-05-17 09:18 | Outpatient (CLI) | payer MEDICARE, SELFPAY ==
--- NOTE | ~2023-05-17 | MR_ITS ---
EXAMINATION: MR shoulder RT wo con DATE: 05/17/2023 09:51 INDICATION: Right shoulder pain. TECHNIQUE: Magnetic resonance imaging (MRI) of the right shoulder was performed without intravenous c ontrast. Sequences included axial PD-weighted FS FSE, coronal oblique PD-weighted FS FSE and T2-weigh rich FS FSE, and sagittal oblique T2-weighted FS FSE and T1-weighted FSE. COMPARISON: None. FINDINGS: Coracoacromial arch: The acromion undersurface is flat in morphology (type I). There is severe acromioclavicular joint ost eoarthritis including inferiorly directed osteophytes. There is moderate subacromial/subdeltoid bursi tis. Rotator cuff: There is moderate subscapularis tendinopathy and mild infraspinatus tendinopathy. Teres minor tendon is normal. Subscapularis tendon is normal. There is no asymmetric fatty atrophy of the rotator cuff m uscle bellies. Biceps tendon and glenoid labrum: Biceps tendon is in bicipital groove. There is mild tendinopathy of biceps tendon. The glenoid labrum is intact. Fluid: There is a small glenohumeral joint effusion. Bones/cartilage: There is partial-thickness cartilage loss of humeral head and glenoid. There are osteophytes in gleno humeral joint. IMPRESSION: 1. Moderate rotator cuff tendinopathy. No tear. 2. Mild glenohumeral joint chondrosis. 3. Severe acromioclavicular joint osteoarthritis. 4. Mild biceps tendinopathy. 5. Small glenohumeral joint effusion. 6. Moderate subacromial/subdeltoid bursitis. Reviewed, dictated and finalized at location E. Y LOOMS PEGGER
== END ==
PROVIDERS: PCP Family Medicine; Visit Provider Anesthesiology
DX: M25.511 Pain in right shoulder (principal); M19.011 Primary osteoarthritis, right shoulder; M75.51 Bursitis of right shoulder; M25.411 Effusion, right shoulder
CPT/HCPCS: 73221

== ENCOUNTER 2023-06-01 10:04 | Outpatient (CLI) | payer MEDICARE, SELFPAY ==
[2023-06-01 10:21] LABS: Hemoglobin 13.7 g/dL (12.0-15.0); Mean Corpuscular HGB Conc 31.9 g/dl (32-36); Mean Corpuscular Hemoglobin 28.2 pg (26-34); Mean Corpuscular Volume 88.7 fl (80-100); Mean Platelet Volume 9.9 fl (7.4-10.4); Platelet Count Result 282 k/mm3 (150-375); Red Blood Count 4.85 M/mm3 (4.2-5.4); Red Cell Distribution Width 13.5 % (11.5-14.5); White Blood Count 7.3 K/mm3 (4.5-10.0)
[2023-06-01 16:41] LABS: Appearance Urine Clear (Clear); Bilirubin Urine Negative (Negative); Blood Urine Negative (Negative); Color Urine Yellow (Yellow); Glucose Urine UA Negative (Negative); Ketones Urine Negative (Negative); Leukocyte Esterase Ur Negative LEU/UL (NEGATIVE); Nitrate Urine Negative (Negative); Protein Urine Negative (Negative); Specific Grav Ur 1.019 (1.001-1.035); Urobilinogen Urine 0.2 mg/dL (<2.0); pH Urine 6.5 (5.0-9.0)
[2023-06-01 16:48] LABS: Add Urine Microscopic? NO
[2023-06-01 16:54] LABS: Alanine Aminotransferase 58 U/L (6-35); Albumin Level 4.5 g/dL (3.5-5.1); Alkaline Phosphatase 84 U/L (38-126); Anion Gap 9 mmol/L (8-16); Aspartate Amino Transferase 58 U/L (14-36); Bilirubin,Total 0.6 mg/dL (0.2-1.3); Blood Urea Nitrogen 14 mg/dL (7-17); Calcium 9.5 mg/dL (8.4-10.2); Carbon Dioxide 31 mmol/L (22-30); Chloride 99 mmol/L (98-107); Cholesterol 237 mg/dL (0-200); Estimated Glomerular Filt Rate > 60; Glucose 93 mg/dL (65-110); HDL Direct 28 mg/dL; Potassium 4.3 mmol/L (3.4-5.0); Sodium 139 mmol/L (137-145); Triglycerides 363 mg/dL (<150)
[2023-06-01 17:05] LABS: LDL Cholesterol Direct 119 mg/dL
[2023-06-01 18:29] LABS: Hemoglobin A1C 5.7 % (<5.7)
== END 2023-06-01 10:05 | disposition home or self-care (01) ==
PROVIDERS: PCP Family Medicine; Visit Provider Family Medicine
DX: E78.5 Hyperlipidemia, unspecified (principal); G43.909 Migraine, unspecified, not intractable, without status migrainosus; R53.83 Other fatigue; R63.5 Abnormal weight gain; R73.01 Impaired fasting glucose; Z00.00 Encounter for general adult medical examination without abnormal findings; E04.1 Nontoxic single thyroid nodule
CPT/HCPCS: 36415; 80053; 80061; 81003; 83036; 84443; 85027

== ENCOUNTER 2023-07-28 09:00 | Outpatient (RCR) | payer MEDICARE, SELFPAY ==
--- NOTE | 2023-05-05 09:51 | OPREHPOC ---
Outpatient Therapy Plan of Care This is a Multidisciplinary Plan of Care that may contain components documented by all disciplines (PT, OT, and ST.) PT Problem 1 PT Problem #1 Knowledge Deficit PT Goal 1 Goal Pt to be IND with issued HEP Target Visit 8 PT Problem 2 PT Problem #2 Pain PT Goal 1 Goal Pt to report neck pain no greater than 3/10 in the last week. Target Visit 8 PT Goal 2 Goal Pt to report 75% improvement in overall symptoms. Target Visit 8 PT Problem 3 PT Problem #3 Impaired Sensation PT Goal 1 Goal Pt to decline radicular symptoms in the last week Target Visit 8 PT Problem 4 PT Problem #4 Impaired Range of Motion PT Goal 1 Goal Pt to improve active shoulder flexion and abduction to 120 deg actively. Target Visit 8 PT Goal 2 Goal Pt to increase active cervical rotation to 50 deg guillaume Target Visit 8 PT Problem 5 PT Problem #5 Impaired Strength PT Goal 1 Goal Pt to able to lift and carry 20lb from ground level without an increase in symptoms. Target Visit 8 PT Goal 2 Goal Pt to demonstrate R shoulder strength equal to L shoulder. Target Visit 8
--- NOTE | 2023-05-05 09:51 | PTOPEVAL1 ---
Assessment and note entered by Ayaka Henson, PT, DPT Evaluation Information Assessment Status Evaluation Diagnosis cervical radiculopathy Onset September Subjective Information Pt reports guillaume shoulder R>L that started under her R shoulder blade, she now a burning and numbing pain that goes up the length of her entire arm. She states she recently did therapy for her shoulder and they realized the shoulder was not the problem. She states she cannot sleep or lift anything d/t the pain. Reported Pain Level Pain Score 6: Self Report Assessment PT Clinical Summary Eleni presents to therapy today for her initial evaluation with a diagnosis of cervical radiculopathy. Today she demonstrates decreased active cervical motion and R shoulder motion in all directions limited by pain, her shoulder is also limited by strength. She reports radicular symptoms into her BUEs, R>L. She has forward and rounded shoulders adding extra strain to her cervical spine. Skilled therapy services are indicated to improve ROM, improve strength, decrease peripheral symptoms, improve functional mobility, and to return to PLOF. Neck Oswestry: 31/50, 62% disability Plan of Care Interventions Electrical Stimulation,Hot Pack/Cold Pack,Manual Therapy,Mechanical Traction,Neuro Re-education, Patient/Caregiver Educati,Therapeutic Activities, Therapeutic Exercise PT Services Indicated Yes Treatment Frequency and 2x/wk for 8 visits Duration These treatments will address the objective and functional deficits as defined above. The patient will be advanced safely and appropriately in order for the patient to progress towards his/her prior level of function. Additional exercises will be introduced and as well as a comprehensive home exercise program upon discharge, if needed, ?to ensure carryover of functional gains achieved in the clinic. This treatment plan has been reviewed and agreement upon by the patient.
--- NOTE | 2023-05-17 16:22 | PCPTNOTE ---
Patient called to cancel but did not leave a reason.
--- NOTE | 2023-06-02 15:30 | PTOPPROG ---
Assessment and note entered by Ayaka Henson, PT, DPT Evaluation Information Assessment Status Progress Diagnosis cervical radiculopathy Onset September Subjective Information Pt states overall she is doing well, she things the anti-inflammatory is helping. She states getting comfortable to sleep is the hardest thing. She states her shoulder mobility has increase as well. Assessment PT Clinical Summary Eleni presents to therapy today for her progress report following 6 visits of skilled therapy to treat her diagnosis of cervical radiculopathy and R shoulder pain. Today she demonstrates improvements in her cervical and shoulder ROM in all directions that is mostly pain free, her R shoulder and cervical ROM is still decreased from normal. She demonstrates improved shoulder mechanics. Continuation of skilled therapy services are indicated to continue improving ROM and strength, improvising functional mobility, and to return to PLOF. Neck Oswestry: , 62% disability Plan of Care Interventions Electrical Stimulation,Hot Pack/Cold Pack,Manual Therapy,Mechanical Traction,Neuro Re-education, Patient/Caregiver Educati,Therapeutic Activities, Therapeutic Exercise PT Services Indicated Yes Treatment Frequency and 1x/wk for 4 visits Duration These treatments will address the objective and functional deficits as defined above. The patient will be advanced safely and appropriately in order for the patient to progress towards his/her prior level of function. Additional exercises will be introduced and as well as a comprehensive home exercise program upon discharge, if needed, ?to ensure carryover of functional gains achieved in the clinic. This treatment plan has been reviewed and agreement upon by the patient.
--- NOTE | 2023-07-05 09:05 | PCPTNOTE ---
Patient called & cancelled scheduled appointment this date due to potential poor weather. States she will call back to reschedule as this was her last appointment.
--- NOTE | 2023-07-28 09:51 | PTOPPROG ---
Assessment and note entered by Ayaka Henson, PT, DPT Evaluation Information Assessment Status Progress Diagnosis cervical radiculopathy Onset September Subjective Information Pt states her neck is feeling good just feeling stiff today. She states her R shoulder is doing great today, it will grab her every once in a while. She states the L shoulder has been bothering her for about a week or so. Assessment PT Clinical Summary Eleni presents to therapy today for her progress report following 9 visits of skilled therapy to treat her diagnosis of cervical radiculopathy and R shoulder pain. Today she demonstrates improvements cervical and R shoulder ROM with a minor decrease in L shoulder ROM compared to last visit. She continues to have limitations with her cervical ROM and needs cueing for some exercises. Continuation of skilled therapy services are indicated to continue improving ROM and strength, improving functional mobility, and to return to PLOF. Neck Oswestry: , 31% disability Plan of Care Interventions Electrical Stimulation,Hot Pack/Cold Pack,Manual Therapy,Mechanical Traction,Neuro Re-education, Patient/Caregiver Educati,Therapeutic Activities, Therapeutic Exercise PT Services Indicated Yes Treatment Frequency and follow up in 1 month Duration These treatments will address the objective and functional deficits as defined above. The patient will be advanced safely and appropriately in order for the patient to progress towards his/her prior level of function. Additional exercises will be introduced and as well as a comprehensive home exercise program upon discharge, if needed, ?to ensure carryover of functional gains achieved in the clinic. This treatment plan has been reviewed and agreement upon by the patient.
--- NOTE | 2023-08-05 11:18 | PCPTNOTE ---
This treatment is being continued on visit number [id number]. Please see documentation on both accounts to view progress. Completed interventions, outcomes, and problems have been marked as Inactive to facilitate the copying of the Care plan routine for recurring accounts.
== END 2023-07-29 11:51 | disposition still patient (30) ==
LOC: ANHGOSHPT 09:00
PROVIDERS: PCP Family Medicine; Visit Provider Family Medicine
DX: M47.22 Other spondylosis with radiculopathy, cervical region (principal)
CPT/HCPCS: 97012; 97110; 97140; 97161; 97530

== ENCOUNTER 2023-08-25 10:04 | Outpatient (RCR) | payer MEDICARE, SELFPAY ==
--- NOTE | 2023-08-05 11:19 | PCPTNOTE ---
The treatment documented on this account is a continuation of the treatment documented on visit number [id number]. Please see documentation on both accounts to view progress. The Plan of Care has been transitioned and updated within the new V#. I have addressed and agree with the discipline specific Problems, Interventions, and Goals for the current certification period. Completed interventions, outcomes, and problems have been marked as Inactive to facilitate the copying of the Care plan routine for recurring accounts.
--- NOTE | 2023-08-25 09:59 | PTOPDC ---
Assessment and note entered by Ayaka Henson, PT, DPT Evaluation Information Assessment Status Discharge Diagnosis cervicalgia and guillaume shoulder pain Subjective Information Pt states her R shoulder has been doing really well, its her L shoulder has been aching more and more with movement. Her neck is also starting to get more and more achy as time progressed. She states she has still been consistent with her exercises. Reported Pain Level Pain Score 0: Self Report Assessment PT Clinical Summary Eleni presents to therapy today for her 10 visit to treat her neck and guillaume shoulder pain. Today she continues to demonstrate improved cervical and R shoulder ROM. She continues to demonstrate lack of active ROM or functional strength in her L shoulder. D/t slow therapy progress with her L shoulder it was recommended that she follow up with ortho for her L shoulder prior to continuing. She will be discharged at this time pending ortho consult.
== END 2023-08-25 11:15 | disposition home or self-care (01) ==
LOC: ANHGOSHPT 10:04
PROVIDERS: PCP Family Medicine; Visit Provider Family Medicine
DX: M47.22 Other spondylosis with radiculopathy, cervical region (principal)
CPT/HCPCS: 97110; 97530

== ENCOUNTER 2023-09-20 07:10 | Outpatient (CLI) | payer MEDICARE, SELFPAY ==
--- NOTE | ~2023-09-20 | MR_ITS ---
EXAMINATION: MR shoulder LT wo con DATE: 09/20/2023 07:43 INDICATION: Left shoulder pain and limited range of motion. Failed physical therapy. TECHNIQUE: Magnetic resonance imaging (MRI) of the left shoulder was performed without intravenous co ntrast. Sequences included axial PD-weighted FS FSE, coronal oblique PD-weighted FS FSE, coronal obli que T2-weighted FS FSE, sagittal PD-weighted FS FSE, and sagittal T1-weighted SE. COMPARISON: None. FINDINGS: Coracoacromial arch: The acromion undersurface is flat in morphology (type I). The coracoacromial ligament is normal. Mode rate acromioclavicular osteoarthritis with subarticular cystic change at both sides of the joint spac e. Rotator cuff: Mild supraspinatus tendinopathy without discrete tear. The infraspinatus and teres minor tendons are normal. Subscapularis tendon is normal. Normal rotator cuff muscle bulk and signal. Biceps tendon, glenoid labrum and glenohumeral cartilage: Long head of the biceps tendon is normal. Glenoid labrum is normal. Mild glenohumeral osteoarthritis with cartilage loss involving greater than 50% the cartilage thickness but with smooth chondral surfa ce at the cephalad aspect of the glenoid. Additional deep chondral ulceration with more irregular cho ndral surface along the humeral head, latest inferomedial and superomedial. No degenerative subchondr al changes. Fluid: Small glenohumeral joint effusion with mild synovitis at the axillary recess. Proportional small amou nt of fluid in the long head biceps tendon sheath. No loose osteochondral bodies. No abnormal increas ed fluid signal in the subacromial/subdeltoid bursa to suggest bursitis. Bones: Normal marrow signal with no edema, fracture or abnormal marrow replacing process. Mild cystic change at the superior facet of the greater tuberosity consistent with chronic rotator cuff disease. IMPRESSION: 1. Mild supraspinatus tendinopathy without tear. 2. Mild glenohumeral osteoarthritis with moderate grade chondromalacia at the humeral head and superi or glenoid . 3. Moderate acromioclavicular osteoarthritis. Reviewed, dictated and finalized at location A. IMPRESSION: 1. Mild supraspinatus tendinopathy without tear. 2. Mild glenohumeral osteoarthritis with moderate grade chondromalacia at the h umeral head and superior glenoid . 3. Moderate acromioclavicular osteoarthritis.
== END 2023-09-20 07:11 ==
LOC: MICIMG 07:11
PROVIDERS: PCP Orthopaedic Surgery; Visit Provider Family Medicine
DX: M19.012 Primary osteoarthritis, left shoulder (principal)
CPT/HCPCS: 73221

== ENCOUNTER 2023-09-26 15:54 | Emergency (ER) | payer MEDICARE, SELFPAY ==
--- NOTE | ~2023-09-26 | CT_ITS ---
EXAMINATION: CT brain wo con DATE: 09/26/2023 18:53 INDICATION: severe dizziness, N/V . TECHNIQUE: Computed tomography (CT) of the head was performed without intravenous contrast. The mA wa s adjusted according to patient size. Iterative reconstruction technique was employed. The dose-lengt h product was 681.00 mGy-cm. COMPARISON: 06/04/2010, report only. FINDINGS: No acute intracranial hemorrhage or extra-axial fluid collection. No hydrocephalus, mass, or herniation. No acute ischemic infarct. Unremarkable dural venous sinus attenuation. No acute osseous abnormality. Right maxillary retention cyst/polyp, the remaining aerated spaces are clear. IMPRESSION: No acute intracranial process. Reviewed, dictated and finalized at location K.
[2023-09-26 15:58] VITALS: BP 164/60; PULSE 62; RESP 17; TEMP 36.4; O2SAT 97
--- NOTE | 2023-09-26 15:59 | ECG_ITS ---
Measurements Intervals [place] Rate: 67 P: 39 NC: 174 QRS: -9 QRSD: 85 T: 20 QT: 394 QTc: 417 Interpretive Statements SINUS RHYTHM MINIMAL VOLTAGE CRITERIA FOR LVH, CONSIDER NORMAL VARIANT [MEETS CRITERIA IN ONE OF: R(aVL), S(V1), R(V5), R(V5/V6)+S(V1)] COMPARED TO ECG 02/16/2021 17:27:08 NO SIGNIFICANT CHANGES Electronically Signed On 09-27-2023 8:46:18 CDT by Justo Landry M.D.
--- NOTE | 2023-09-26 18:11 | ED.DIZZY ---
HPI - Dizziness General Chief Complaint: Dizziness <VAZQUEZ Gagnon Last Filed: 09/26/23 18:30> Stated Complaint: n/v <VAZQUEZ Gagnon Last Filed: 09/26/23 18:30> Time Seen by Provider: 09/26/23 18:11 <VAZQUEZ Gagnon Last Filed: 09/26/23 18:30> Focused HPI: Patient is a 67 y/o female who presents to the ED with c/o dizziness. Patient reports she was at work today when she suddenly developed severe dizziness around 3pm. States she was just sitting down when the symptoms began. States sx's were worse with any movement. [place] off balance, had tunnel vision, then began having N/V, chest tightness. Reported multiple episodes of emesis. States severe dizziness lasted approx 3-4 minutes before improving. She was then brought here for further evaluation. Patient states she has had vertigo in the past, but it did not feel similar. Has never been on medication for the vertigo. Feels improved currently, still dizzy with movements and looking to the left. Still slightly nauseous. Denies any further chest pain or tightness. Denies SOB, focal weakness/numbness, vision loss, slurred speech, confusion. GENERAL: Well-appearing, well-nourished, and in no acute distress. HEAD: Normocephalic, atraumatic. EYES: PERRL/EOMI, conjunctiva clear. Mild fatiguable nystagmus when looking to the left. No gaze deviation. CHEST: Clear to auscultation. ?No respiratory distress. HEART: Regular rate and rhythm.? NEURO: ?Alert and oriented x3. Strength equal in upper and lower extremities bilaterally. Equal inker and opaquer strength. No pronator drift. No focal deficits. CN 2-12 grossly intact. Patient screened in triage and initial orders placed.? ?Additional care and disposition to be based upon?diagnostic testing and treatment. <VAZQUEZ Gagnon Last Filed: 09/26/23 18:30> Source: patient <VAZQUEZ Gagnon Last Filed: 09/26/23 18:30> Mode of arrival: ambulatory <Arlin Engel PA-C - Last Filed: 09/26/23 18:30> Limitations: no limitations <Arlin Engel PA-C - Last Filed: 09/26/23 18:30> Related Data Allergies/Adverse Reactions: Allergies Allergy/AdvReac Type Severity Reaction Status Date / Time metronidazole Allergy Severe VERTIGO, Verified 07/14/23 15:24 NAUSEA, VOMIT,RINGING OF EARS doxycycline Allergy Unknown Unknown Verified 07/14/23 15:24 METRONIDAZOLE HCL Allergy Severe VERTIGO, Uncoded 07/14/23 15:24 NAUSEA, VOMIT,RINGING OF EARS <Arlin Engel PA-C - Last Filed: 09/26/23 18:30> Review of Systems Review of Systems: All systems are reviewed and are negative unless stated otherwise in the HPI. <Agapito Vega MD - Last Filed: 09/26/23 21:30> PMFSH Past Medical History Medical History: Medical History Arthritis of left shoulder region Arthritis of right shoulder region Cervical spondylosis with radiculopathy Elevated liver enzymes History of depression Hyperglyceridemia, pure Impacted cerumen of left ear Impingement syndrome of shoulder Left arm pain Migraines Paresthesia of left arm Thyroid nodule <Arlin Engel PA-C - Last Filed: 09/26/23 18:30> Surgical History Surgical History: Surgical History Hx of hand surgery <Arlin Engel PA-C - Last Filed: 09/26/23 18:30> Social History Social History: Social History Social History: Smoking packs per day: 0.75 Smoking cigarettes per day: 15.0 Years smoked: 40 Smoking pack-years: 30.00 Smoking status: Former smoker Tobacco type: cigarettes Second hand tobacco smoke exposure: No Smoking end date: 05/08/13 Alcohol intake: never Substance use: never Substance use type: does not use Lack of Transportation: No [place]
[2023-09-26] MEDS: MECLIZINE HCL 25 MG TABLET PO (18:30)
[2023-09-26] MEDS: ONDANSETRON HCL ODT 4 MG TABLET PO (18:30)
[2023-09-26 18:37] LABS: Basophils Absolute Auto 0.1 K/mm3 (0.0-0.1); Basophils Percent Auto 0.6 % (0.2-1.2); Eosinophils Absolute Auto 0.2 K/mm3 (0-0.3); Eosinophils Percent Auto 2.4 % (0-4.4); Hematocrit 45.3 % (37.0-47.0); Hemoglobin 14.4 g/dL (12.0-15.0); Immature Granulocyte Absolute 0.03 K/mm3 (0.00-0.031); Immature Granulocyte Percent A 0.3 % (0-0.5); Lymphocytes Absolute Auto 1.51 K/mm3 (0.9-3.2); Lymphocytes Percent Auto 17.5 % (18.3-44.2); Mean Corpuscular HGB Conc 31.8 g/dl (32-36); Mean Corpuscular Hemoglobin 27.7 pg (26-34); Mean Corpuscular Volume 87.1 fl (80-100); Mean Platelet Volume 9.9 fl (7.4-10.4); Monocytes Absolute Auto 0.3 K/mm3 (0.1-0.6); Monocytes Percent Auto 3.6 % (2.6-8.5); Neutrophils Absolute Auto 6.5 K/mm3 (1.3-6.7); Neutrophils Percent Auto 75.6 % (45.5-73.1); Platelet Count Result 253 k/mm3 (150-375); Red Cell Distribution Width 13.4 % (11.5-14.5); White Blood Count 8.6 K/mm3 (4.5-10.0)
[2023-09-26 18:47] LABS: Alanine Aminotransferase 34 U/L (6-35); Albumin Level 4.7 g/dL (3.5-5.1); Alkaline Phosphatase 83 U/L (38-126); Anion Gap 7 mmol/L (4-12); Aspartate Amino Transferase 48 U/L (14-36); Bilirubin,Total 0.5 mg/dL (0.2-1.3); Blood Urea Nitrogen 18 mg/dL (7-17); Calcium 9.9 mg/dL (8.4-10.2); Carbon Dioxide 30 mmol/L (22-30); Chloride 102 mmol/L (98-107); Estimated Glomerular Filt Rate > 60; Glucose 124 mg/dL (65-110); Magnesium 2.2 mg/dL (1.6-2.3); Potassium 4.1 mmol/L (3.4-5.0); Sodium 139 mmol/L (137-145)
[2023-09-26 18:48] LABS: INR 0.9
[2023-09-26 18:49] LABS: Partial Thromboplastin Time 26.2 Seconds (22.3-36.8)
[2023-09-26 18:57] LABS: NT Pro B Type Natriuretic Pept < 20 pg/mL (19.9-100)
[2023-09-26 18:59] LABS: Troponin I < 0.012 ng/mL (0.000-0.034)
[2023-09-26 19:43] VITALS: BP 159/72; PULSE 70; RESP 18; TEMP 36.8; O2SAT 99
[2023-09-26 21:25] VITALS: BP 149/67; PULSE 66; PULSE 68; RESP 14; TEMP 36.3; O2SAT 98
[2023-09-26 22:24] VITALS: BP 155/69; PULSE 72; RESP 16; O2SAT 98
== END 2023-09-26 22:26 | disposition home or self-care (01) ==
LOC: ANHED 21:34
PROVIDERS: Physician Assistant; Emergency Provider Emergency Medicine; PCP Orthopaedic Surgery
DX: H81.10 Benign paroxysmal vertigo, unspecified ear (principal); R11.2 Nausea with vomiting, unspecified; M19.012 Primary osteoarthritis, left shoulder; M19.011 Primary osteoarthritis, right shoulder; Z87.891 Personal history of nicotine dependence
CPT/HCPCS: 36415; 70450; 80053; 83735; 83880; 84484; 85025; 85610; 85730; 93005; 99284; A9270

== ENCOUNTER 2023-10-04 13:01 | Outpatient (CLI) | payer MEDICARE, SELFPAY ==
--- NOTE | ~2023-10-04 | XR_ITS ---
XR shoulder RT min 2V 10/04/2023 13:30 Indication: Right shoulder pain Procedure: 4 views right shoulder Comparison: 02/22/2023 Findings: Mild polyarticular osteoarthritis. No fracture or traumatic malalignment. There are chronic granulomatous of the right lung since hilum. Osteopenia. No focal soft tissue abnormality. Impression: 1: Mild polyarticular osteoarthritis. Reviewed, dictated and finalized at location A. Impression: 1: Mild polyarticular osteoarthritis.
--- NOTE | ~2023-10-04 | XR_ITS ---
XR shoulder LT min 2V 10/04/2023 13:30 Indication: Impingement syndrome Procedure: 4 views left shoulder Comparison: 02/22/2023 Findings: There is mild polyarticular osteoarthritis. No fracture or traumatic malalignment. There is chronic granulomatous disease of the left lung. No erosive changes. Impression: 1: Mild polyarticular osteoarthritis. Reviewed, dictated and finalized at location A. Impression: 1: Mild polyarticular osteoarthritis.
== END 2023-10-04 13:02 ==
LOC: MICIMG 13:03
PROVIDERS: PCP Family Medicine; Visit Provider Orthopaedic Surgery
DX: M19.011 Primary osteoarthritis, right shoulder (principal); M75.42 Impingement syndrome of left shoulder; M19.012 Primary osteoarthritis, left shoulder
CPT/HCPCS: 73030

== ENCOUNTER 2023-11-26 12:21 | Outpatient (CLI) | payer MEDICARE, SELFPAY ==
[2023-11-26 12:48] LABS: Basophils Absolute Auto 0.1 K/mm3 (0.0-0.1); Basophils Percent Auto 1.1 % (0.2-1.2); Eosinophils Absolute Auto 0.3 K/mm3 (0-0.3); Eosinophils Percent Auto 3.5 % (0-4.4); Hematocrit 43.9 % (37.0-47.0); Hemoglobin 14.1 g/dL (12.0-15.0); Immature Granulocyte Absolute 0.03 K/mm3 (0.00-0.031); Immature Granulocyte Percent A 0.4 % (0-0.5); Lymphocytes Absolute Auto 1.97 K/mm3 (0.9-3.2); Lymphocytes Percent Auto 26.2 % (18.3-44.2); Mean Corpuscular HGB Conc 32.1 g/dl (32-36); Mean Corpuscular Hemoglobin 27.8 pg (26-34); Mean Corpuscular Volume 86.6 fl (80-100); Mean Platelet Volume 9.8 fl (7.4-10.4); Monocytes Absolute Auto 0.5 K/mm3 (0.1-0.6); Monocytes Percent Auto 6.5 % (2.6-8.5); Neutrophils Absolute Auto 4.7 K/mm3 (1.3-6.7); Neutrophils Percent Auto 62.3 % (45.5-73.1); Platelet Count Result 253 k/mm3 (150-375); Red Blood Count 5.07 M/mm3 (4.2-5.4); White Blood Count 7.5 K/mm3 (4.5-10.0)
[2023-11-26 12:50] LABS: Alanine Aminotransferase 31 U/L (6-35); Albumin Level 4.5 g/dL (3.5-5.1); Alkaline Phosphatase 85 U/L (38-126); Anion Gap 5 mmol/L (4-12); Aspartate Amino Transferase 46 U/L (14-36); Bilirubin,Total 0.5 mg/dL (0.2-1.3); Blood Urea Nitrogen 17 mg/dL (7-17); Calcium 9.2 mg/dL (8.4-10.2); Carbon Dioxide 33 mmol/L (22-30); Chloride 101 mmol/L (98-107); Estimated Glomerular Filt Rate > 60; Glucose 99 mg/dL (65-110); Sodium 139 mmol/L (137-145)
== END 2023-11-26 12:22 | disposition home or self-care (01) ==
PROVIDERS: PCP Family Medicine; Visit Provider Physician Assistant
DX: R53.83 Other fatigue (principal); R55 Syncope and collapse
CPT/HCPCS: 36415; 80053; 84443; 85025

== ENCOUNTER 2023-12-20 07:57 | Outpatient (CLI) | payer MEDICARE, SELFPAY ==
--- NOTE | ~2023-12-20 | US_ITS ---
EXAMINATION: US carotid duplex BI DATE: 12/20/2023 09:35 INDICATION: Vertigo. Syncope and collapse. Weakness. TECHNIQUE: Grayscale, color Doppler, and pulsed Doppler images of the cervical carotid arteries were obtained. The degree of vessel stenosis is placed in one of the following categories: normal, <50%, 5 0-69%, >=70% but less than near-occlusion, near-occlusion, or total occlusion. Note that percent sten osis relative to normal distal artery lumen diameter is indirectly measured from velocity measurement s as described by Felix, et al. Radiology 2003; 229:340-346. COMPARISON: None. FINDINGS: RIGHT: The right common carotid artery (CCA) peak systolic velocity (PSV) is 81 cm/s. The right internal car otid artery (ICA) PSV is 72 cm/s. The right ICA end-diastolic velocity (EDV) is 30 cm/s. The right IC A/CCA PSV ratio is 1.0. Grayscale and color Doppler images demonstrate no evident stenosis or plaque in the ICA. The external carotid artery (ECA) PSV is 75 cm/s. There is antegrade flow in the right ve rtebral artery. LEFT: The left CCA PSV is 92 cm/s. The left ICA PSV is 80 cm/s. The left ICA EDV is 24 cm/s. The left ICA/C CA PSV ratio is 0.9. Grayscale and color Doppler images demonstrate no evident stenosis or plaque in the ICA. The ECA PSV is 76 cm/s. There is antegrade flow in the left vertebral artery. IMPRESSION: 1. No evident plaque or stenosis in the right internal carotid artery. 2. No evident plaque or stenosis in the left internal carotid artery. Reviewed, dictated and finalized at location B.
--- NOTE | 2023-12-26 11:52 | WPDHOLTEREM ---
Holter/Event Monitor Holter/Event Monitor Date of procedure: 12/20/23 Holter/Event Procedure: 48 Hr Holter Monitor Indications: Chest pain Conclusion: 1. 48 hour holter monitor on 12/20/23. 2. Underlying rhythm is sinus rhythm. HR range 60-91 bpm; average HR 72 bpm. 3. There are 3 premature supraventricular complexes and 4 supraventricular couplets. No supraventricular tachycardia. 4. There are 2 premature ventricular complexes. No ventricular tachycardia. 5. No sinoatrial or atrioventricular blocks. No significant pauses greater than 2 seconds. 6. No symptoms available for correlation.
== END 2023-12-20 07:58 | disposition home or self-care (01) ==
PROVIDERS: PCP Family Medicine; Visit Provider Physician Assistant
DX: R07.9 Chest pain, unspecified (principal); R20.0 Anesthesia of skin; R20.2 Paresthesia of skin; R55 Syncope and collapse; I65.23 Occlusion and stenosis of bilateral carotid arteries
CPT/HCPCS: 93225; 93226; 93880

== ENCOUNTER 2024-01-05 02:24 | Day surgery (SDC) | payer MEDICARE, SELFPAY ==
[2023-12-30 15:09] VITALS: BMI 28.5
--- NOTE | 2023-12-30 15:17 | PC.NURSE ---
Report to the Outpatient Waiting Room, entrance under the green pavilion located off [facility], at time _0800_ on date _[id number]_. Planned Procedure Time: _1000__. Time changes happen often and if your time is changed the preop area will call you the afternoon before. - You and your visitor will be asked to self-screen and do not enter if you have any COVID symptoms. - A mask is optional within the hospital at this time. Patients may have clear liquids (water, carbonated beverages, clear teas, apple juice) until 3 hours prior to surgery with a maximum of 20 ounces. - No food from midnight until time of surgery Take the following medications with a SIP of water the morning of surgery: ____Propanolol DO NOT STOP ANY OF YOUR OTHER PRESCRIPTION MEDICATIONS PRIOR TO SURGERY ?EXCEPT THE FOLLOWING Medications to discontinue per physician Tina stopped Meloxicam last weekend. Date to take last dose Please no make-up, nail macanese, hairspray, perfume, deodorant, or body powder the day of surgery. No jewelry (including any body piercings) or valuables the day of surgery, leave them at home. Please take a shower or bath the night before, or the morning of, surgery with an antibacterial soap. Wear comfortable, loose fitting clothing. - Jewelry must be removed prior to entering the operating room. Rings and piercings that are not removed may be cut off. - The hospital will not accept responsibility for valuables. - Please leave all valuables, including medications, at home the day of surgery. If you are going home after surgery, a licensed cement truck driver must drive you home. - NO public transportation without another adult if you receive anesthesia. - We recommend that an adult stay with you for 24 hours following discharge. - We also recommend that you do not drive, make important decision, drink alcoholic beverages, or take any drugs that were not prescribed by your health care provider for at least 24 hours after your discharge time. Follow any additional instructions given to you from your surgeon. If you or anyone in your household have experienced Covid symptoms in the past week, please notify your surgeon or the nurse liaison at the phone number below for possible testing. Telephone instructions given to __Tina___and asked if any additional questions and then verbalized understanding. Patient advised to call surgeon office or pre surgery nurse liaison [phone] if any additional questions.
--- NOTE | 2024-01-04 15:31 | WPDANESEPPF ---
Anes - Initial Pre Proc Eval Procedure: Operation Date: 01/05/24 10:00 Proposed Procedures p Left Shoulder Arthroscopic Subacromial Decompression, Proceed as Indicated - Tom Hardin MD Date/Time: 01/04/24 15:31 Surgeon: Tom Hardin MD Pre Op Diagnosis: Impingement Synd Left Shoulder Patient Data Age: 68 Gender: F Height: 1.57 m Weight: 70.9 kg Allergies Allergy/AdvReac Type Severity Reaction Status Date / Time metronidazole Allergy Severe VERTIGO, Verified 01/05/24 08:58 NAUSEA, VOMIT,RINGING OF EARS doxycycline Allergy Unknown Unknown Verified 01/05/24 08:58 Home Medications Medication Instructions Recorded Confirmed Type propranolol 60 mg capsule,24 See Rx Instructions .Route 11/18/23 01/05/24 Rx hr,extended release .COMPLEX #100 caps meloxicam 15 mg tablet See Rx Instructions .Route 11/24/23 01/05/24 Rx .COMPLEX #30 tabs triamcinolone acetonide 0.1 % 1 applic topical BID #30 grams 11/24/23 01/05/24 Rx topical cream ondansetron HCl 4 mg tablet 4 mg PO Q8H PRN nausea and 12/14/23 01/05/24 Rx vomiting #30 tabs Patient hx anesthesia problems: post op nausea/vomiting Family hx anesthesia problems: none Results Review: All pre-operative results and documents have been reviewed as part of the pre-operative evaluation. FORMERLY [facility], [facility] Past Medical History Medical History (Updated 01/04/24 @ 15:31 by Tima Michaels DO) Arthritis of left shoulder region Arthritis of right shoulder region Cervical spondylosis with radiculopathy Elevated liver enzymes History of depression Hyperglyceridemia, pure Impacted cerumen of left ear Impingement syndrome of shoulder Left arm pain Migraines Paresthesia of left arm PONV (postoperative nausea and vomiting) Thyroid nodule Vertigo Surgical History Surgical History (Updated 01/04/24 @ 15:31 by Tima Michaels DO) History of hysterectomy Hx of hand surgery Social History Social History Social History: Smoking packs per day: 0.75 Smoking cigarettes per day: 15.0 Years smoked: 40 Smoking pack-years: 30.00 Smoking status: Never smoker Tobacco type: cigarettes Second hand tobacco smoke exposure: No Smoking end date: 05/08/13 Alcohol intake: never Substance use: never Substance use type: does not use Lack of Transportation: No Lack of Food: Never True Current Housing: I Have Housing Concerned About Future Housing: No Difficulty Paying Gas/Electric Bills: No Difficulty Paying for Meds: No Currently Unemployed: No Education: Bachelor's Degree Difficulty w/ Childcare or Family Care: No Living arrangements: alone Occupation/Education: occupation Gender identity (if verbalized by the patient): Female Sexual Orientation (if Verbalized by the Patient): Straight or Heterosexual Spiritual care concerns: No Anes - Eval Final PreProcedure Day of Procedure 01/04/24 15:31 Patient weight: overweight Heart: regular rate and rhythm Lungs: clear to auscultation Airway: Mallampati scale class II Neurological: alert and oriented Last oral intake: >/= 8 hours ASA classification: II Emergent: no Anesthetic plan: proceed Anesthesia type and monitoring: general ETT and standard monitoring Results Review: All pre-operative results and documents have been reviewed as part of the pre-operative evaluation. Informed Consent: The patient's anesthetic plan and its attendant risks and benefits were discussed with the patient/family/POA. Questions were solicited and answers provided to the satisfaction of the patient/family/POA.
[2024-01-05] VITALS (10 sets, daily range): BP systolic 117–163; BP diastolic 65–83; PULSE 60–78; RESP 14–20; TEMP 36–36.7; O2SAT 95–100
[2024-01-05] MEDS: LACTATED RINGERS 1,000 ML 30 ML IV CONT ×3 (08:50→13:35)
[2024-01-05] MEDS: ACETAMINOPHEN 500 MG TABLET 1000 MG PO (08:52)
[2024-01-05] MEDS: KETOROLAC 15 MG/ML VIAL (*BKC) IV PUSH (08:53)
--- NOTE | 2024-01-05 10:28 | WPDANESPNB ---
Anes - Peripheral Nerve Block Date/Time: 01/05/24 10:28 I have discussed with the patient/family/POA the placement of a peripheral nerve block for post-operative pain management, including associated risks, benefits, complications, and side effects. Alternative methods of post-operative analgesia were detailed. Questions were solicited and answers provided to the satisfaction of the patient/family/POA. Time-Out: A pre-procedural Time-Out was completed immediately before starting the procedure and confirmed: Patient Identification, Site, Procedure, Patient Position and the Availability of Requisite Equipment. Clinical Indications: Acute post-operative pain management requested by the operative surgeon. Nerve Block Insertion Note Anes-nerve block: interscalene left Patient position: supine Skin prep: chlorhexidine Needle: 22 gauge, stimulating, insulated echogenic needle. Needle length: 50 mm Technique: ultrasound Injectate: bupivacaine 0.5% with epi 5 mcg/ml (20cc- no epi) Observations: tolerated well Complications: none Procedure start time:: 1019 Procedure end time:: 1021
--- NOTE | 2024-01-05 10:33 | WPDHPUPDATE1 ---
History and Physical Update Update Date/Time: 01/05/24 10:33 History and Physical has been reviewed, including an updated exam of the patient. There are NO changes in the patient's condition. Risks, benefits, and alternatives have been discussed and questions answered. Patient agrees to proceed with procedure.
[2024-01-05] MEDS: ceFAZolin 2 GM/D5W 50 ML 2 GM/50 ML BAG IVPB (10:40)
[2024-01-05] MEDS: EPINEPHrine HCL INJ 1 MG/ML AMPUL 3 MG IRRIGATION (11:24)
[2024-01-05] MEDS: ONDANSETRON INJ 4 MG/2 ML VIAL IV PUSH (12:50)
[2024-01-05] MEDS: fentaNYL CITRATE INJ (*CRX) 100 MCG/2 ML VIAL 25 MCG IV PUSH (13:05)
[2024-01-05] MEDS: SCOPOLAMINE 1 MG PATCH 1 PATCH TRANSDERM (13:20)
--- NOTE | 2024-01-05 16:09 | P.OP_ITS ---
Procedure Note - Detailed Date of Procedure 01/05/24 Pre-op Diagnosis Left shoulder 1. Degenerative arthritis with SLAP tear 2. Impingement Syndrome Post-op Diagnosis Same Procedure Performed Left shoulder 1. . Arthroscopic biceps tenodesis 2. Arthroscopic subacromial decompression 3. Arthroscopic extensive debridement with chondroplasty and labral debridement Surgeon Tom Hardin MD Cost Estimating Engineer Micheline Mckenzie PA-C Anesthesia General and [facility] ( interscalene block) Findings Extensive labral tearing including the superior labrum biceps attachment. Debridement performed. Articular cartilage wear moderately on the glenoid and more significantly on the humerus. There was a definite rotation contracture and external rotation contracture. The anterior capsule was thickened and contracted. Anterior capsule release was performed with the radiofrequency probe to the 6 o'clock position. Minimal rotator interval hyperplasia was treated with gentle debridement using the arthroscopic shaver. Biceps was secured with a loop and tack system and Arthrex SwiveLock anchor at the articular margin. It was released from the superior labrum. The articular supraspinatus showed only very minimal fraying. The subscapularis was intact. The subacromial space looked benign. There was no evidence of rotator cuff tearing. Mild subacromial spur and impingement. Description of Procedure Preoperative antibiotics were given. An interscalene block was administered in the preoperative area. The patient was bought brought to the operating room. A general anesthetic was administered. The patient was carefully positioned in the beach chair position. The head and neck were carefully positioned. The non operative extremity was also carefully positioned. The shoulder was prepped and draped in the usual sterile fashion. Examination was performed. The shoulder was tight in external rotation limited to 35?. Internal rotation and elevation remained fairly normal. Standard posterior and anterior arthroscopic portals were established. Inflow achieved with the arthroscopic pump using saline and epinephrine. The glenohumeral joint was carefully inspected. Debridement of the articular cartilage of the glenoid and humerus as well as 360 degree labral debridement was performed. The SLAP tear was very unstable and a biceps tenodesis was elected. The loop intact system was introduced and the biceps was pierced. Secure fixation at the articular margin was accomplished with a SwiveLock anchor. The rotator cuff was healthy. The shoulder had a contracture and was treated with release of the anterior capsule down to the 6 o'clock position. Attention was turned to the subacromial space. A complete bursectomy was performed. Modest acromioplasty was performed with the arthroscopic bur. The arthroscopic instruments were removed. The wounds were closed with 3-0 Monocryl subcuticular suture and steri strips. There were no complications. A sling was applied and the patient brought to the recovery room. Physician clinical assistant professor, Micheline Mckenzie PA-C, required for surgery; including patient positioning, draping, arthroscopic camera operation, maintaining instrument position, anchor placement and suture passing, wound closure, and dressing and sling placement. Implants Arthrex SwiveLock anchor. Estimated Blood Loss 20 Pathology None sent Complications No immediate complications Condition Stable Disposition PACU [facility] Billing Surgery - Charge Forward: Surgery Billing
== END 2024-01-05 15:15 | disposition home or self-care (01) ==
PROVIDERS: PCP Family Medicine; Visit Provider Orthopaedic Surgery
PROC: (CPT 29805; principal; 2024-01-05 10:00)
DX: M75.42 Impingement syndrome of left shoulder (principal); M75.82 Other shoulder lesions, left shoulder; M19.012 Primary osteoarthritis, left shoulder; M19.011 Primary osteoarthritis, right shoulder; F32.A Depression, unspecified; E78.1 Pure hyperglyceridemia; G89.18 Other acute postprocedural pain; Z98.890 Other specified postprocedural states; Z87.891 Personal history of nicotine dependence
CPT/HCPCS: 64415; 29828; 29826; A4565; A9270; C1713; J0171; J0690; J1100; J1885; J2250; J2405; J2704; J3010; J7120

== ENCOUNTER 2024-01-17 10:54 | Outpatient (CLI) | payer MEDICARE, SELFPAY ==
--- NOTE | ~2024-01-17 | XR_ITS ---
EXAM: [id number] DATE: 01/17/2024 11:07 HISTORY: spondylosis neck pain no injury . COMPARISON: None available. FINDINGS: The cervicothoracic junction is not adequately visualized in the lateral views provided. C raniocervical association and atlantoaxial joint are aligned. Moderate degenerative change at the hans antodental interval. No prevertebral soft tissue swelling. Vertebral bodies are aligned. Cervical str aightening. Vertebral body heights are maintained. Moderate disc space narrowing and marginal osteoph ytosis at C3-4 through C5-6. Moderate multilevel facet hypertrophy. Moderate uncovertebral joint oste ophytosis at C5-6 on the left. IMPRESSION: Multilevel moderate cervical degenerative disc disease. Multilevel moderate facet arthrop athy. Reviewed, dictated and finalized at location K. IMPRESSION: Multilevel moderate cervical degenerative disc disease. Multilevel moderate facet arthropathy.
== END 2024-01-17 10:55 ==
LOC: MICIMG 10:56
PROVIDERS: PCP Internal Medicine Cardiovascular Disease; Visit Provider Family Medicine
DX: M47.892 Other spondylosis, cervical region (principal); R55 Syncope and collapse; M50.30 Other cervical disc degeneration, unspecified cervical region
CPT/HCPCS: 72040

== ENCOUNTER 2024-03-06 09:06 | Outpatient (CLI) | payer MEDICARE, SELFPAY ==
[2024-03-06 10:48] LABS: Alanine Aminotransferase 47 U/L (6-35); Albumin Level 4.5 g/dL (3.5-5.1); Alkaline Phosphatase 85 U/L (38-126); Anion Gap 10 mmol/L (4-12); Aspartate Amino Transferase 57 U/L (14-36); Bilirubin,Total 0.6 mg/dL (0.2-1.3); Blood Urea Nitrogen 15 mg/dL (7-17); Calcium 9.6 mg/dL (8.4-10.2); Carbon Dioxide 30 mmol/L (22-30); Chloride 99 mmol/L (98-107); Cholesterol 236 mg/dL (0-200); Estimated Glomerular Filt Rate > 60; Glucose 115 mg/dL (65-110); HDL Direct 35 mg/dL; Potassium 4.7 mmol/L (3.4-5.0); Sodium 139 mmol/L (137-145); Triglycerides 301 mg/dL (<150)
[2024-03-06 10:59] LABS: LDL Cholesterol Direct 123 mg/dL
== END 2024-03-06 09:07 | disposition home or self-care (01) ==
PROVIDERS: PCP Family Medicine; Visit Provider Internal Medicine Cardiovascular Disease
DX: E78.5 Hyperlipidemia, unspecified (principal)
CPT/HCPCS: 36415; 80053; 80061

== ENCOUNTER 2024-03-27 11:00 | Outpatient (RCR) | payer MEDICARE, SELFPAY ==
[2024-01-11 10:00] VITALS: BP_SYST 80
--- NOTE | 2024-01-11 11:07 | OPREHPOC ---
Outpatient Therapy Plan of Care This is a Multidisciplinary Plan of Care that may contain components documented by all disciplines (PT, OT, and ST.) PT Problem 1 PT Problem #1 Knowledge Deficit PT Goal 1 Goal *indep with HEP * correct shoulder position with exercises Target Visit 10 PT Problem 2 PT Problem #2 Pain PT Goal 1 Goal 1* pt report pain rating at worst of 3/10 with increased activity 2* self assessment Quick DASH rating of 40% limitation in activity level 3* pt report sleeping 6 hours/time Target Visit 10 PT Problem 3 PT Problem #3 Impaired Range of Motion PT Goal 1 Goal increase L shoulder ROM to improve use of L arm with self care and home tasks in supine: 1* flexion 140' 2* abduction 130' in standin* ER reach palm to back of head 4* IR- reach behind back, palm to waist Target Visit 10 PT Problem 4 PT Problem #4 Impaired Strength PT Goal 1 Goal increase strength of L shoulder, to improve use of L arm for home and self care activities: in standing x 5 reps: 1* flexion to 130' 2* abduction to 120' Target Visit 10
--- NOTE | 2024-01-11 11:08 | PTOPEVAL1 ---
Assessment and note entered by Fauzia Walter, PT Evaluation Information Assessment Status Evaluation Diagnosis Z48.89--s/p L shoulder arthroscopy ICD-10 Condition Codes (PT) M25.512 Onset 01-05-24 Subjective Information shoulder pain since Jan 2023; had PT, injections and then surgery--subacromial decompression, extensive debridement with chondroplasty of labrum, biceps tenodesis. 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; live alone; sister lives near and can assist PRN; stated she is to use the sling for 1-2 weeks; is able to sleep in the bed with pillows around arm for support; Reported Pain Level Pain Score Self Report Additional Pain Score Comments pain range in the past 2 days: 2-6/10; ache, throb upper humerus; decrease pain: hold onto sore area, heat- over posterior shoulder- lie on--not over incision,ice; hydrocodone every 4-6 hours use of sling during day and remove at night for sleeping; during day with sitting, will remove and prop arm on pillow; with sleeping, 3 hours at time Assessment PT Clinical Summary Eleni is s/p L shoulder surgery. 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 She is R hand dominant. Self assessment with Quick DASH is 70% limitation in activity. With the evaluation: she has weakness and decreased ROM of L shoulder, with pain over elbow and shoulder. Skilled PT services are indicated for shoulder post op rehab: modalities for pain control, progression of strengthening from passive to active assisted to active and strengthening as tolerated, weaning off sling and education for HEP and posture of shoulder. Plan of Care Interventions Electrical Stimulation,Hot Pack/Cold Pack,Manual Therapy,Neuro Re-education,Patient/Caregiver Education,Therapeutic Activities,Therapeutic Exe
[2024-02-09 10:00] VITALS: BP_SYST 85
--- NOTE | 2024-02-09 10:49 | OPREHPOC ---
Outpatient Therapy Plan of Care This is a Multidisciplinary Plan of Care that may contain components documented by all disciplines (PT, OT, and ST.) PT Problem 1 PT Problem #1 Knowledge Deficit PT Goal 1 Goal *indep with HEP * correct shoulder position with exercises Target Visit 10 Progress Met Comment 02-09-24 progress goals met continue towards goals to progress education/HEP PT Goal 2 Target Visit 16 PT Problem 2 PT Problem #2 Pain PT Goal 1 Goal 1* pt report pain rating at worst of 3/10 with increased activity 2* self assessment Quick DASH rating of 40% limitation in activity level 3* pt report sleeping 6 hours/time Target Visit 10 Progress Partially Met Comment 02-09-24 progress goal 2 met continue towards goals 1 & 3 PT Goal 2 Target Visit 16 PT Problem 3 PT Problem #3 Impaired Range of Motion PT Goal 1 Goal increase L shoulder ROM to improve use of L arm with self care and home tasks in supine: 1* flexion 140' 2* abduction 130' in standin* ER reach palm to back of head 4* IR- reach behind back, palm to waist Target Visit 10 Progress Not Met Comment 02-09-24 progress goals not met continue towards goals PT Goal 2 Target Visit 16 PT Problem 4 PT Problem #4 Impaired Strength PT Goal 1 Goal increase strength of L shoulder, to improve use of L arm for home and self care activities: in standing x 5 reps: 1* flexion to 130' 2* abduction to 120' Target Visit
--- NOTE | 2024-02-09 10:49 | PTOPPROG ---
Assessment and note entered by Fauzia Walter, PT Progress Report Assessment Status Discharge Diagnosis Z48.89--s/p L shoulder arthroscopy ICD-10 Condition Codes (PT) M25.512 Onset 01-05-24 Subjective Information shoulder is better, but still weakness over shoulder; doing the exercises at home, 3x/day; sleeping better; want to continue therapy, see dr next week; saw general dr- cardiac issues are clearing and have monitor to check it; also having some neck pain, but less; had neck xray and some spurs; PAIN: range in the past week 3-6 decrease pain: taking 3 ibuprofen/day; using heat/ ice but not as often increase pain: lie on L side sleeping 4-5 hours/time also have neck pain--doing stretches and heat/ice over neck; Assessment PT Clinical Summary Eleni has received 8 PT sessions. Compared to the initial evaluation: pain rating from 2-6/10 to 3-6/10; self assessment Quick DASH from 70% to 36% limitation in activity; improved sleeping tolerance from 3 hours to 4-5 hours at time; education for HEP and posture. ROM of L shoulder: active/passive: flexion 115/ 140'; abduction 75'/85'; active shoulder IR: reach behind back, palm to lateral hip and ER reach to back of head, fingers to neck; active elbow extension to 0' without pain The goals are partially achieved. Continue PT to further increase ROM and strength of L shoulder, with progression of HEP. Plan of Care Interventions Electrical Stimulation,Hot Pack/Cold Pack,Manual Therapy,Patient Education,Therapeutic Activities,Therapeutic Exercise,Ultrasound,Other Other Interventions taping, [facility] PT Services Indicated Yes Treatment Frequency and 1-2x/wk for 8 visits Duration These treatments will address the objective and functional deficits as defined above. The patient will be advanced safely and appropriately in order for the patient to progress towards his/her prior level of function. Additional exercises will be introduced and as well as a comprehe
[2024-03-27 11:09] VITALS: BP_SYST 125
--- NOTE | 2024-03-27 12:24 | OPREHPOC ---
Outpatient Therapy Plan of Care This is a Multidisciplinary Plan of Care that may contain components documented by all disciplines (PT, OT, and ST.) PT Problem 1 PT Problem #1 Knowledge Deficit PT Goal 1 Goal / Goal Update *indep with HEP * correct shoulder position with exercises Target Visit 10 Progress Met PT Goal 2 Target Visit 16 PT Problem 2 PT Problem #2 Pain PT Goal 1 Goal / Goal Update 1* pt report pain rating at worst of 3/10 with increased activity (Not Met) 2* Self assessment Quick DASH rating of 40% limitation in activity level (Not Met) 3* pt report sleeping 6 hours/time (Met) Target Visit 23 Progress Partially Met PT Goal 2 Target Visit 16 PT Problem 3 PT Problem #3 Impaired Range of Motion PT Goal 1 Goal / Goal Update increase L shoulder ROM to improve use of L arm with self care and home tasks in supine: 1* flexion 170' 2* abduction 150' in standin* ER reach palm to back of head (Met) 4* IR- reach behind back, palm to waist (Not Met) Target Visit 23 Progress Not Met PT Goal 2 Target Visit 16 PT Problem 4 PT Problem #4 Impaired Strength PT Goal 1 Goal / Goal Update -Patient will improve L shoulder flexion strength to 4+/5 to improve object lifting to shelf for home cabinet reaching and self care -Patient will improve L shoulder external rotation strength to 5/5 to improve shoulder stabilization to reduce humeral shift during lifting activity Target Visit 23 Progress Not Met PT Goal 2 Goal / Goal Update Patient will demonstrate ability to perform 20# lift from floor to chest without pain to perform laundry care Target Visit 23 PT Goal 1 Goal / Goal Update Patient will demonstrate ability to perform 5# lift from waist to shelf without pain for home functional lifting capability. Target Visi
--- NOTE | 2024-03-27 12:25 | PTOPPROG ---
Assessment and note entered by Tyler Grady, PT Evaluation Information Assessment Status Progress Diagnosis Z48.89--s/p L shoulder arthroscopy ICD-10 Condition Codes (PT) M25.512 Onset 01-05-24 Subjective Information Reports that she still is a little apprehensive with use of the shoulder. She always uses her right shoulder to assist with reaching and lifting motion. She denies significant pain at rest but has still been using hot and cold modality for pain relief dependent on how active she has been that day. She has no pain sleeping but does not sped a lot of time on her shoulder. No radicular pain either. Feels she has made at least 75% improvement. She has no pain at rest, but has significant increased pain with overhead and reaching away form the body. Assessment PT Clinical Summary Patient has made significant improvement in shoulder ROM and strength, but she is still lacking significant functional lifting ability especially away from the body and above shoulder level. She is dependent on use of her dominant arm to assist with all left shoulder activity. She is having difficulty with many necessary functional activity limiting capability and quality of life while leaving her at continued risk for adhesive capsulitis as she is still lacking ROM. Plan of Care Interventions Electrical Stimulation,Hot Pack/Cold Pack,Manual Therapy,Patient/Caregiver Educati,Therapeutic Activities,Therapeutic Exercise,Ultrasound,Other Other Interventions carlosing, [place] [facility] Indicated Yes Treatment Frequency and 1-2x/week for 8 weeks Duration These treatments will address the objective and functional deficits as defined above. The patient will be advanced safely and appropriately in order for the patient to progress towards his/her prior level of function. Additional exercises will be introduced and as well as a comprehensive home exercise program upon discharge, if needed, ?to ensure carryover of functional gains achieved in the clinic. This treatment plan has been reviewed and agreement upon by the patient.
== END 2024-04-09 08:43 | disposition still patient (30) ==
LOC: ANHGOSHPT 11:00
PROVIDERS: PCP Family Medicine; Visit Provider Orthopaedic Surgery
DX: Z48.89 Encounter for other specified surgical aftercare (principal)
CPT/HCPCS: 97014; 97110; 97140; 97161; 97530; G0283

== ENCOUNTER 2024-04-17 09:00 | Outpatient (RCR) | payer MEDICARE, SELFPAY ==
[2024-04-09 08:43] VITALS: BP_SYST 125
--- NOTE | 2024-04-19 10:39 | PCPTNOTE ---
Patient called & cancelled scheduled appointment this date due to having another appointment.
--- NOTE | 2024-07-06 14:11 | PTOPDC ---
Assessment and note entered by Tyler Grady, PT Evaluation Information Assessment Status Discharge - Pt Not Present Diagnosis Z48.89--s/p L shoulder arthroscopy ICD-10 Condition Codes (PT) Pain in left shoulder M25.512 Onset 01-05-24 Subjective Information Reports that she still is a little apprehensive with use of the shoulder. She always uses her right shoulder to assist with reaching and lifting motion. She denies significant pain at rest but has still been using hot and cold modality for pain relief dependent on how active she has been that day. She has no pain sleeping but does not sped a lot of time on her shoulder. No radicular pain either. Feels she has made at least 75% improvement. She has no pain at rest, but has significant increased pain with overhead and reaching away form the body. Assessment PT Clinical Summary Patient last present for therapy on 04/17/24. Patient has not returned to therapy at this time and will be discharged. Please refer to last progress note on 03/27/24 for discharge status. Plan of Care PT Services Indicated Yes
== END 2024-07-06 15:08 | disposition home or self-care (01) ==
LOC: ANHGOSHPT 09:00
PROVIDERS: PCP Family Medicine; Visit Provider Orthopaedic Surgery
DX: Z48.89 Encounter for other specified surgical aftercare (principal)
CPT/HCPCS: 97110; 97140; 97530

== ENCOUNTER 2024-11-05 16:23 | Outpatient (CLI) | payer MEDICARE, SELFPAY ==
--- NOTE | ~2024-11-05 | XR_ITS ---
3 VIEWS LUMBAR SPINE Ordering provider: Hortensia Gardner PA-C History: . M54.50 - Low back pain, unspecified . Comparison: None. FINDINGS: VERTEBRAL BODIES: No visible fracture or subluxation. Degenerative changes of the spine. DISK SPACES: Normal. Facet joint disease at the level of L4-L5 and L5-S1. SOFT TISSUES: Atherosclerotic changes. IMPRESSION: No acute osseous abnormality lumbar spine. Reviewed, dictated and finalized at location A.
== END 2024-11-05 16:24 | disposition home or self-care (01) ==
LOC: MICIMG 16:24
PROVIDERS: PCP Family Medicine; Visit Provider Student in an Organized Health Care Education/Training Program
DX: M54.50 Low back pain, unspecified (principal)
CPT/HCPCS: 72100

== ENCOUNTER 2024-11-22 07:45 | Outpatient (NON) | payer MEDICARE, SELFPAY ==
--- OUTSIDE RECORDS SUMMARY | 2024-11-22 08:14 | XMS_ITS ---
Author Organization [facility] Address [address] [place] [address] Care Team Providers Care Balance Wheel Screw Hole Tapper Name Role Phone TATIANA MORGAN MD Primary Care Provider Broderick Lopes Unavailable [phone] ALLERGIES Allergen (clinical drug ingredient) Drug/Non Drug Allergy documented on EMR Reaction Allergy Type Onset Date Status doxycycline Doxycycline Unknown Drug Allergy Act louis metronidazole Metronidazole nausea and vomiting Drug Allergy Active REASON FOR VISIT Follow Up, Right Neck Pain, Right Upper Extremity Pain MEDICATIONS Medication SIG (Take, Route, Frequency, Duration) Notes Start Date End Date Status Advil Dual Action 125-250 MG 2 tablets as needed Orally every 8 hrs Active Gabapentin 100 MG Oral for 30 Active Medrol 4 MG as directed Orally Active Meloxicam 15 MG TAKE 1 TABLET BY JANNETTE DAILY Oral for 30 Active Propranolol HCl ER 60 MG Oral for 100 Active Ibuprofen 200 MG 1 tablet with food o r milk as needed Orally Three times a day Active Tylenol 325 MG 1 tablet as needed O rally every 4 hrs Active VITAL SIGNS Blood pressure systolic 132 mm Hg 05/31/20 23 Blood pressure diastolic 82 mm Hg 023 Heart Rate 69 /min 05/31/2023 Respiratory Rate 18 /min 05/31/2023 Height 62 in 05/31/2023 Weight 160 lbs 05/31/2023 BMI 29.26 kg/m2 05/31/2023 Encounters Encounter Location Date Provider Diagnosis [facility] [address] [facility] [place] [place] [address] 05/31/2023 Broderick Rivera Radiculopathy, cervical region M54.12 ; Radiculopathy, cervicothoracic region M54.13 ; Spinal stenosis, cervical region M48.02 ; Osseous stenosis of neural canal of cervical region M99.31 ; correction (current) use of anticoagulants Z79.01 ; Spondylosis without myelopathy or radiculopathy, cervical region M47.812 ; Spondylosis without myelopathy or radiculopathy, cervicothoracic region M47.813 ; Spondylolisthesis, cervical region M43.12 ; Primary osteoarthritis, unspecified shoulder M19.019 ; Pain in right shoulder M25.511 and Chronic pain syndrome G89.4 ASSESSMENTS Encounter Date Diagnosis Assessment Notes Treatment Notes Treatment Clinical Notes 05/31/2023 Radiculopathy, cervical region (ICD-10 - M54.12) Patient recently underwent PRO done on 05/13/23 and reports a 2 week 95% reduction of her neck pain since this procedure. She currently denies any different injections or interventions at this time. She liked to follow-up in the office in 1 month for reevaluation of her pain at that time 05/31/2023 Radiculopathy, cervicothoracic region (ICD-10 - M54.13) 05/31/2023 Spinal stenosis, cervical region (ICD-10 - M48.02) 05/31/2023 Osseous stenosis of neural canal of cervical region (ICD-10 - M99.31) 05/31/2023 correction (current) use of anticoagulants (ICD-10 - Z79.01) 05/31/2023 Spondylosis without myelopathy or radiculopathy, cervical region (ICD-10 - M47.812) 05/31/2023 Spondylosis without myelopathy or radiculopathy, cervicothoracic region (ICD-10 - M47.813) 05/31/2023 Spondylolisthesis, cervical region (ICD-10 - M43.12) 05/31/2023 Primary osteoarthritis, unspecified shoulder (ICD-10 - M19.019) 05/31/2023 Pain in right shoulder (ICD-10 - M25.511) 05/31/2023 Chronic pain syndrom e (ICD-10 - G89.4) 05/31/2023 Other The above-named patient was evaluated in conjunction with Dr. Rivera. I have discussed and reviewed all of the pertinent history, physical examination findings and diagnostic imaging results with him. As a result of our discussion, Dr. Rivera has determined the above assessment and directed the treatment plan. This note was dictated using voice recognition software and therefore inadvertent errors may have occurred. This note was dictated by CEDRICK German PLAN OF TREATMENT Treatment Notes Assessment Notes Radiculopathy, cervical region Patient carol steele underwent PRO done on 05/13/23 and reports a 2 week 95% reduction of her neck pain since this procedure. She currently denies any different injections or interventions at this time. She liked to follow-up in the office in 1 month for reevaluation of her pain at that time Other The above-named fito ent was evaluated in conjunction with Dr. Rivera. I have discussed and reviewed all of the pertinent history, physical examination findings and diagnostic imaging results with him. As a result of our discussion, Dr. Rivera has determined the above assessment and directed the treatment plan. This note was dictated using voice recognition software and therefore inadvertent errors may have occurred. This note was dictated by CEDRICK German Next Appt Details Follow Up: 4 Weeks OPV, Reas on: Progress Notes * Examination Category Sub-Category Detail Notes Examination/ Pre-Anesthesia Assessment General: The patient is alert and jaime ented X 3 in moderate distress secondary to pain HEENT: Normocephalic, atrau matic. PERRL. The oropharynx is clear Neck: There is limited ran ge of motion of the cervical spine to 60 degrees with extension and lateral rotation bilaterally. There is tenderness to palpation over the bilateral C3-4 through C7-T1 facet joints. Extension and lateral rotation of the cervical spine reproduces the patients typical axial neck pain. The axial loading test is positive. There is diffuse tenderness to palpation over the bilateral cervical paraspinal muscles and significant muscle spasm throughout. There are palpable myofascial trigger points within the body of the trapezius muscles bilaterally Heart: Regular rate and rhy thm Chest: Clear to auscultatio n bilaterally Abdomen: Soft and benign with normal bowel sounds throughout Musculoskeletal and Extremities: There i s full range of motion of the left upper and bilateral lower extremities. There is positive impingement at 90 degrees of abduction at the right shoulder. There is diffuse tenderness palpation about the bilateral shoulders Neurological: Spurling sign is pos itive on the right. There is 4 out of 5 easement worker strength on the right as well as flexion at the right biceps. Otherwise, there are no focal strength deficits in the remainder of the left upper extremity and entire left upper extremity. There are no focal strength deficits in the bilateral lower extremities Skin: Clean, dry and intac t Psychiatric: Mood and affect are normal History and Physical Notes * HPI (History of Present Illness) Category Sub-Category Detail Notes Pain Management Radiographic Imaging X-ray of the bilateral shoulders done on 02/22/23 demonstrates mild degenerative changes in the glenohumeral joints. An MRI of the cervical spine done on 04/14/23 demonstrates a grade 1 retrolisthesis of C6 on C7. There is bilateral facet and uncovertebral hypertrophy throughout the cervical spine. At C5-6 there is bilateral foraminal stenosis. At C6-7 there is a disc osteophyte complex with mild cord flattening and bilateral foraminal stenosis MRI right shoulder performed 05/17/23. Overall impression moderate rotator cuff tendinopathy. No tear. Mild glenohumeral joint and dresses. Severe acromioclavicular joint osteoarthritis. Mild biceps tendinopathy. Small glenohumeral joint effusion Assessment and Follow-up: Follow-up Plan documen rich:: Yes MIPS Quality 2020: MIPS Documented:: Compliant
--- OUTSIDE RECORDS SUMMARY | 2024-11-22 08:14 | XMS_ITS | Data Portability ---
Author Organization [facility], Main Office Address [address] [place] [address] Care Team Providers Care Flour Tester Name Role Phone TATIANA MORGAN Primary Care Provider TATIANA MORGAN Referring Provider Assessment No assessment recorded. Plan of Treatment Reminders Order Date Submit Date Provider Last Modified By Organization Details Last Modified Time Details Appointments None recorded. Lab None recorded. Referral None recorded. Procedures injection/a spiration joint/bursa (PROC) - in office procedure, administere d by provider 2022 023 [email or web address] In-Office Order, Internal Use Only DO Not Attach Compendium DO Not Attach Compendium, Do Not Delete/merge, [id number] 3 09:46:27 Surgeries None recorded. Imaging None recorded. Medication Orders Kenalog 10 mg/mL suspension for injection 2022 023 [id number], [address], [id number], 3 10:19:22 ropivacaine (PF) 5 mg/mL (0.5 %) injection solution 2022 023 [email or web address] #[id number], [address] [facility] [address] [place] [address], [id number], 3 10:19:22 Patient TargetsNo targets recorded. Patient InstructionsNo instructions recorded. Reason for Referral None Reported. Results Created Date Observation Date Name Description Value Unit Range Abnormal Flag Note LastModifiedBy Organization Detail LastModifiedTime 12/22/19 23 10/27/2022 XR, wrist , 3 or more view No observ ation record ed. [email or web address] Not Available 2022 10:02:27 Result Notes None recorded. Problems Name Problem SNOMED Code Status Onset Date Resolution Date Notes Provider Name and Address Organization Details Recorded Time Pain in right hand 9664645123182 09 Active 2022 Marilyn Schmidt moreno [facility] 09:45:42 Extensor tenosynovit is of wrist 082806737 Active 2022 Arden Haji MD [address] [address], [place], [address], [employer] [facility] 09:49:53 Mass of hand 288619607 Active 2022 Arden Haji MD [address] [facility] [address], [place], [address], [employer] [facility] 09:50:25 Problem Notes None recorded. Medical Equipment None Reported. Medications Name Sig Start Date Stop Date Status Note LastModified by Organization Details LastModified Time propranolol ER 60 mg capsule,24 hr,extended release active Not Available Not Available Not Available tramadol 50 mg tablet TAKE 1 TABLET BY MOUTH EVERY 12 HOURS NEEDED FOR PAIN active Not Available Not Available No t Available Kenalog 10 mg/mL suspension for injection in office 2022 active [facility]: 0003- 0494- 20 Not Available Not Available Not Available methylpredni solone 4 mg tablets in a dose pack FOLLOW PACKAGE DIRECTIONS active Not Available Not Available N ot Available ropivacaine (PF) 5 mg/mL (0.5 %) injection solution in office 2022 active [facility] 20155 -064- 01 Not Available Not Available Not Available Vitals Date Recorded Body height Body mass index (BMI) Body weight Provider Name and Address Organization Details Last Updated DateTime 12/21/2022 154.94 cm 28.3 kg/m2 24308.86 g RANDY Mcbride [employer] [facility] 12/21/2022 09:23:30 Social History Question Answer Notes LastModified by Organizat ion Details LastModified Time Tobacco Smoking Status Unknown If Ever Smoked RANDY Mcbride [facility] 12/21/2022 09:24:25 What Was The Date Of Your Most Recent Tobacco Screening? 12/21/2022 Information not available 12/21/2022 Sex: Unknown Functional Status Question Answer Note LastModified by Organization D etails LastModified Time What is your level of alcohol consumption? None [email or web address] Information not available 12/21/2022 Mental Status None recorded. Family History Relationship Description Onset Age of this Age Resolved Age Notes LastModified by Organization Details LastModified Time Father Heart disease [email or web address] Not available 2022 09:24:02 Medical History No medical history recorded. Gynecological HistoryNo gynecological history recorded. Obstetrics History GPAL:G 0 P 0 0 0 0 Past Encounters Encounter ID Performer Location Encounter Start Date Encounter Closed Date Diagnosis/Indication Diagnosis SNOMED-CT Code Diagnosis ICD10 Code Diagnosis Note [id number] Arden Haji MD [facility] [address] [place] [address] 12/21/2022 09:10:55 12/21/2022 10:04:20 Pain in right hand 9967988856 00333 M79.641 Extensor tenosynovitis of wrist 247432008 M65.839 under sterile technique standard protocol injected the 6th extensor compartmen t 2 cc xylocaine 2 cc Kenalog liquid went up the sheath nicely. Provided her with a well fitted right wrist brace. We will see her back in a few weeks if no improvemen t of the ECU tenosynovi tis. Mass of hand 659306157 R 22.31 we aspirated the mass it is not a hemangioma or a cystic ganglion or synovial cyst. It is well-circu mscribed freely mobile and small if it enlarges or becomes little painful patient agrees to come back in for an MRI scan to further evaluate the mass Health Concerns Section Related Observation LastModified by Organization Detai ls LastModified Time None Recorded Concern Status LastModified by Organization Details LastModified Time None Recorded Advance Directives Directive None Recorded Payers Encounter Date Sequence Insurance Name Policy Number Policy Malone Covered Member ID Malone Member ID Guarantor Name 12/21/2022 1 [facility] (MEDICARE REPLACEMENT/A DVANTAGE - HMO) [id number] Eleni Cormier [id number] Eleni Cormier Notes Date Note Type Note Provider Name and Address Organization Details Recorded Time 12/21/2022 text/html Patient comes in today with several month history of pain in her right wrist. Patient underwent a [facility] arthroplasty years ago that is done nicely. Patient also for few months has had a well-circumscribed little mass not any pain associated with it right over her 1st dorsal interosseous on the right hand. No history of any trauma. Patient states she does do a lot a heavy repetitive hand use with her work and home activity Arden Haji MD [address] [place] [address], [facility] [address], [place], [address], [facility] 12/21/2022 09:51:07 OBGyn Episode No OBEpisode recorded.
--- OUTSIDE RECORDS SUMMARY | 2024-11-22 08:15 | XMS_ITS | Patient Health Record ---
Author Organization [facility] Address [address] [place] [address] [facility] [place] [address] Care Team Providers Care Scrap Dealer Name Role Phone TATIANA MORGAN MD Primary Care Provider Unavaila Broderick Caballero Unavailable [phone] ALLERGIES Allergen (clinical drug ingredient) Drug/Non Drug Allergy documented on EMR Reaction Allergy Type Onset Date Status doxycycline Doxycycline Unknown Drug Allergy Act louis metronidazole Metronidazole nausea and vomiting Drug Allergy Active REASON FOR REFERRAL No Information MEDICATIONS Medication SIG (Take, Route, Frequency, Duration) Notes Start Date End Date Status Ibuprofen 200 MG 1 tablet with food o r milk as needed Orally Three times a day Active Meloxicam 15 MG TAKE 1 TABLET BY MOUTH DAILY Oral for 30 Active Phentermine HCl 30 MG TAKE 1 CAPSULE BY MOUTH DAILY Oral for 30 E663,Unavailabl e Active Propranolol HCl ER 60 MG Oral for 100 Active Medrol 4 MG as directed Orally Active Advil Dual Action 125-250 MG 2 tablets as needed Orally every 8 hrs Active Gabapentin 100 MG Oral for 30 Active Tylenol 325 MG 1 tablet as needed Orally every 4 hrs Active SOCIAL HISTORY Sex Assigned At : Social History Observation Description Sex Assigned At Unknown PROBLEMS Problem Type ICD Code Onset Dates Problem Status W/U Status Risk SNOMED Code Notes Problem Chronic pain syndrome (G89.4) Active confirmed Chronic miladis n syndrome (253234998) Problem Primary osteoarthritis, unspecified shoulder (M19.019) Active confirmed Localized , primary osteoarthritis of the shoulder region (562650661) Problem Pain in right shoulder (M25.511) Active confirmed Pain of r ight shoulder region (finding) (6173073606) Problem Spondylolisthesis, cervical region (M43.12) Active confirmed Acquired spondylolisthesis (126246046) Problem Spondylosis without myelopathy or radiculopathy, cervical region (M47.812) Active confirmed Cervical spondylosis without myelopathy (092497978) Problem Spondylosis without myelopathy or radiculopathy, cervicothoracic region (M47.813) Active confirmed Cervical spondylosis without myelopathy (331444549) Problem Spinal stenosis, cervical region (M48.02) Active confirmed Spinal stenosis in cervical region (77919520) Problem Radiculopathy, cervical region (M54.12) Active confirmed Cervical radiculopathy (06725232) Problem Radiculopathy, cervicothoracic region (M54.13) Active confirmed Cervical radiculopathy (85676285) Problem Osseous stenosis of neural canal of cervical region (M99.31) Active confirmed Spinal stenosis in cervical region (87090297) Problem 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) Active confirmed Connectiv e tissue and disc stenosis of intervertebral foramina (433861075) Problem emt intermediate (current) use of anticoagulants (Z79.01) Active confirmed Long-term curre nt use of anticoagulant (446695674) PLAN OF TREATMENT Pending Test Test Name Order Date MRI : Shoulder, right 05/05/2023 Insurance Providers Payer Name Payer Address Payer Phone Subscriber Number Group Number Insured Name Patient Relationship to Insured Coverage Start Date Coverage End Date [employer] [address] [place] [address] [id number] ELIZABETH BROOKS Self - patient is the insured MEDICAL (GENERAL) HISTORY Medical History History ICD Code Depression Surgical History Surgery Date(Month/Year) Right thumb surgery [facility] Joint OA replace ment 1997 Hospitalization History Reason Date(Month/Year) SEE SURGERIES ABOVE
--- OUTSIDE RECORDS SUMMARY | 2024-11-22 08:17 | XMS_ITS | Clinical Summary ---
Author Organization [facility] Address [address] [place] [address] Care Team Providers Care Casing Tier Name Role Phone No, Physician Primary Care Provider [phone] Allergies No known active allergies Medications No known medications Active Problems No known active problems Social History Tobacco Use Types Packs/Day Years Used Date Smoking Tobacco: Never Personal Safety Answer Date Recorded Getting School Help Needed Not on file 09/08 Comments Unknown Sex and Gender Information Value Date Recorded Sex Assigned at Not on file Legal Sex Female 9:57 AM [employer] Gender Identity Not on file Sexual Orientation Not on file Obstetrics History Last Filed Vital Signs Vital Sign Reading Time Taken Comments Blood Pressure - - Pulse - - Temperature 36.1 C (97 F) 12/25/2019 3:31 PM CDT Respiratory Rate - - Oxygen Saturation - - Inhaled Oxygen Concentration - - Weight - - Height - - Body Mass Index - - Plan of Treatment Not on file [place] [address] [place] [address] CORE Care Teams Casing Tier Relationship Specialty Start Date End Date No, Physician PCP - General 11/08/19
--- OUTSIDE RECORDS SUMMARY | 2024-11-22 08:17 | XMS_ITS ---
Author Organization [facility] Address [address] [facility] [place] [address] Care Team Providers Care Cfa Name Role Phone TATIANA MORGAN MD Primary Care Provider Unavaila Broderick Caballero Unavailable [phone] ALLERGIES Allergen (clinical drug ingredient) Drug/Non Drug Allergy documented on EMR Reaction Allergy Type Onset Date Status doxycycline Doxycycline Unknown Drug Allergy Act louis metronidazole Metronidazole nausea and vomiting Drug Allergy Active REASON FOR VISIT Follow Up, Left Neck Pain, Left Upper Extremity Pain MEDICATIONS Medication SIG (Take, Route, Frequency, Duration) Notes Start Date End Date Status Phentermine HCl 30 MG TAKE 1 CAPSULE BY MOUTH DAILY Oral for 30 E663,Unavailabl e Active Advil Dual Action 125-250 MG 2 tablets as needed Orally every 8 hrs Active Gabapentin 100 MG Oral for 30 Active Ibuprofen 200 MG 1 tablet with food o r milk as needed Orally Three times a day Active Tylenol 325 MG 1 tablet as needed Orally every 4 hrs Active Propranolol HCl ER 60 MG Oral for 100 Active Medrol 4 MG as directed Orally Active Meloxicam 15 MG TAKE 1 TABLET BY MOUTH DAILY Oral for 30 Active VITAL SIGNS Blood pressure systolic 142 mm Hg 07/19/19 24 Blood pressure diastolic 96 mm Hg 024 Heart Rate 74 /min 07/19/2023 Respiratory Rate 16 /min 07/19/2023 Height 62 in 07/19/2023 Weight 160 lbs 07/19/2023 BMI 29.26 kg/m2 07/19/2023 Encounters Encounter Location Date Provider Diagnosis [facility] [address] [facility] [place] [address] 07/19/2023 Broderick Rivera Radiculopathy, cervical region M54.12 ; Radiculopathy, cervicothoracic region M54.13 ; Spinal stenosis, cervical region M48.02 ; Osseous stenosis of neural canal of cervical region M99.31 ; retirement (current) use of anticoagulants Z79.01 ; Spondylosis without myelopathy or radiculopathy, cervical region M47.812 ; Spondylosis without myelopathy or radiculopathy, cervicothoracic region M47.813 ; Spondylolisthesis, cervical region M43.12 ; Primary osteoarthritis, unspecified shoulder M19.019 ; Pain in right shoulder M25.511 and Chronic pain syndrome G89.4 ASSESSMENTS Encounter Date Diagnosis Assessment Notes Treatment Notes Treatment Clinical Notes 07/19/2023 Radiculopathy, cervical region (ICD-10 - M54.12) Patient continues to report over 85% relief of her severe neck and upper extremity pain following most recent PRO performed on 05/13/23. She currently denies a need for any injections or interventions at this time. She would like to return to the office in 1 month for follow-up and reevaluation of her pain at that time. 07/19/2023 Radiculopathy, cervicothoracic region (ICD-10 - M54.13) 07/19/2023 Spinal stenosis, cervical region (ICD-10 - M48.02) 07/19/2023 Osseous stenosis of neural canal of cervical region (ICD-10 - M99.31) 07/19/2023 retirement (current) use of anticoagulants (ICD-10 - Z79.01) 07/19/2023 Spondylosis without myelopathy or radiculopathy, cervical region (ICD-10 - M47.812) 07/19/2023 Spondylosis without myelopathy or radiculopathy, cervicothoracic region (ICD-10 - M47.813) 07/19/2023 Spondylolisthesis, cervical region (ICD-10 - M43.12) 07/19/2023 Primary osteoarthritis, unspecified shoulder (ICD-10 - M19.019) 07/19/2023 Pain in right shoulder (ICD-10 - M25.511) 07/19/2023 Chronic pain syndrom e (ICD-10 - G89.4) 07/19/2023 Other The above-named patient was evaluated in [...] Notes Assessment Notes Radiculopathy, cervical region Patient c ontinues to report over 85% relief of her severe neck and upper extremity pain following most recent PRO performed on 05/13/23. She currently denies a need for any injections or interventions at this time. She would like to return to the office in 1 month for follow-up and reevaluation of her pain at that time. Other The above-named fito ent was evaluated [...] right. There is 4 out of 5 scheduling manager strength on the right as well as [...] joint effusion Assessment and Follow-up: Follow-up Plan docarnoldo rich:: Yes MIPS Quality 2020: MIPS Documented:: Compliant
--- OUTSIDE RECORDS SUMMARY | 2024-11-22 08:17 | XMS_ITS ---
Author Organization [facility] Address [address] [place] [address] Care Team Providers Care Director Corporate Security Name Role Phone TATIANA MORGAN MD Primary Care Provider Unavaila Broderick Caballero Unavailable [phone] ALLERGIES Allergen (clinical drug ingredient) Drug/Non Drug Allergy documented on EMR Reaction Allergy Type Onset Date Status doxycycline Doxycycline Unknown Drug Allergy Act louis metronidazole Metronidazole nausea and vomiting Drug Allergy Active REASON FOR VISIT FOLLOW UP MEDICATIONS Medication SIG (Take, Route, Frequency, Duration) [...] as needed Orally every 4 hrs Active Encounters Encounter Location Date Provider Diagnosis [facility] [address] [facility] [place] [address] 08/18/2023 Broderick Rivera Radiculopathy, cervical region M54.12 ; Radiculopathy, cervicothoracic region M54.13 ; Spinal stenosis, cervical region M48.02 ; Osseous stenosis of neural canal of cervical region M99.31 ; termite treater helper (current) use of anticoagulants Z79.01 ; Spondylosis without myelopathy or radiculopathy, cervical region M47.812 ; Spondylosis without myelopathy or radiculopathy, cervicothoracic region M47.813 ; Spondylolisthesis, cervical region M43.12 ; Primary osteoarthritis, unspecified shoulder M19.019 ; Pain in right shoulder M25.511 and Chronic pain syndrome G89.4 ASSESSMENTS Encounter Date Diagnosis Assessment Notes Treatment Notes Treatment Clinical Notes 08/18/2023 Radiculopathy, cervical region (ICD-10 - M54.12) 08/18/2023 Radiculopathy, cervicothoracic region (ICD-10 - M54.13) 08/18/2023 Spinal stenosis, cervical region (ICD-10 - M48.02) 08/18/2023 Osseous stenosis of neural canal of cervical region (ICD-10 - M99.31) 08/18/2023 [facility] (current) use of anticoagulants (ICD-10 - Z79.01) 08/18/2023 Spondylosis without myelopathy or radiculopathy, cervical region (ICD-10 - M47.812) 08/18/2023 Spondylosis without myelopathy or radiculopathy, cervicothoracic region (ICD-10 - M47.813) 08/18/2023 Spondylolisthesis, cervical region (ICD-10 - M43.12) 08/18/2023 Primary osteoarthritis, unspecified shoulder (ICD-10 - M19.019) 08/18/2023 Pain in right should er (ICD-10 - M25.511) 08/18/2023 Chronic pain syndrom e (ICD-10 - G89.4) 08/18/2023 Other The above-named patient was evaluated in [...] PLAN OF TREATMENT Treatment Notes Assessment Notes Other The above-named fito ent was evaluated [...] This note was dictated by CEDRICK German Progress Notes * Examination Category Sub-Category Detail [...] right. There is 4 out of 5 hot mill shearer strength on the right as well as [...] and Follow-up: Follow-up Plan documen rich:: Yes [facility] Quality 2020: [facility] Documented:: Compliant
--- OUTSIDE RECORDS SUMMARY | 2024-11-22 08:18 | XMS_ITS | Referral Summary ---
Author Organization [facility] [place] [facility] Address [address] [place] [address] Care Team Providers Care Electric Organ Inspector And Repairer Name Role Phone No, Physician Primary Care Provider [phone] Allergies No known active allergies Medications No known medications Active Problems No known active problems Social History Tobacco Use Types Packs/Day Years Used Date Smoking Tobacco: Never Personal Safety Answer Date Recorded Getting School Help Needed Not on file 09/08 Comments Unknown Sex and Gender Information Value Date Recorded Sex Assigned at Not on file 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
[2024-11-22 08:38] LABS: Basophils Absolute Auto 0.1 K/mm3 (0.0-0.1); Basophils Percent Auto 1.2 % (0.2-1.2); Eosinophils Absolute Auto 0.4 K/mm3 (0-0.3); Eosinophils Percent Auto 4.7 % (0-4.4); Hematocrit 44.7 % (37.0-47.0); Hemoglobin 14.3 g/dL (12.0-15.0); Immature Granulocyte Absolute 0.03 K/mm3 (0.00-0.031); Immature Granulocyte Percent A 0.4 % (0-0.5); Lymphocytes Absolute Auto 1.99 K/mm3 (0.9-3.2); Lymphocytes Percent Auto 25.7 % (18.3-44.2); Mean Corpuscular Hemoglobin 27.7 pg (26-34); Mean Corpuscular Volume 86.5 fl (80-100); Mean Platelet Volume 9.4 fl (7.4-10.4); Monocytes Absolute Auto 0.6 K/mm3 (0.1-0.6); Monocytes Percent Auto 7.4 % (2.6-8.5); Neutrophils Absolute Auto 4.7 K/mm3 (1.3-6.7); Neutrophils Percent Auto 60.6 % (45.5-73.1); Platelet Count Result 257 k/mm3 (150-375); Red Blood Count 5.17 M/mm3 (4.2-5.4); Red Cell Distribution Width 13.2 % (11.5-14.5); White Blood Count 7.7 K/mm3 (4.5-10.0)
[2024-11-22 10:27] LABS: Alanine Aminotransferase 41 U/L (6-35); Albumin Level 4.5 g/dL (3.5-5.1); Alkaline Phosphatase 84 U/L (38-126); Anion Gap 11 mmol/L (4-12); Aspartate Amino Transferase 58 U/L (14-36); Bilirubin,Total 0.3 mg/dL (0.2-1.3); Blood Urea Nitrogen 14 mg/dL (7-17); Calcium 9.4 mg/dL (8.4-10.2); Carbon Dioxide 28 mmol/L (22-30); Chloride 102 mmol/L (98-107); Cholesterol 238 mg/dL (0-200); Estimated Glomerular Filt Rate > 60; Glucose 110 mg/dL (65-110); HDL Direct 36 mg/dL; Potassium 4.3 mmol/L (3.4-5.0); Sodium 141 mmol/L (137-145); Triglycerides 304 mg/dL (<150)
[2024-11-22 10:38] LABS: LDL Cholesterol Direct 115 mg/dL
== END 2024-11-22 07:46 | disposition home or self-care (01) ==
PROVIDERS: PCP Family Medicine; Visit Provider Physician Assistant
DX: E78.5 Hyperlipidemia, unspecified (principal); R79.89 Other specified abnormal findings of blood chemistry; E78.1 Pure hyperglyceridemia
CPT/HCPCS: 36415; 80053; 80061; 83036; 85025

== ENCOUNTER 2024-12-10 09:36 | Outpatient (CLI) | payer MEDICARE, SELFPAY ==
--- NOTE | ~2024-12-10 | US_ITS ---
Limited ABDOMINAL ULTRASOUND (Doppler ultrasound interrogation techniques used as needed for this exa m.) Ordering provider: Lyndsey Sánchez PA-C History: . R79.89 - Other specified abnormal findings of blood chemi... . Comparison: None. FINDINGS: PANCREAS: Slightly echogenic. PORTAL VEIN: Hepatopedal flow demonstrated. LIVER: Normal size and increased echogenicity. No focal hepatic lesions or perihepatic fluid collecti ons are identified. BILIARY DUCTS: No intra or extrahepatic biliary dilation. Common bile duct measures 5.2 mm in diamete r which is normal for patient's age. GALLBLADDER: Normal. No stones, sludge, gallbladder wall thickening or pericholecystic fluid. Gallbla dder wall thickness is 2.3 mm. Negative sonographic Maradiaga's sign. FREE FLUID: None visualized within the upper abdomen. IMPRESSION: Fat infiltration of the liver and pancreas Otherwise, normal limited abdominal ultrasound. Reviewed, dictated and finalized at location A.
--- OUTSIDE RECORDS SUMMARY | 2024-12-10 10:15 | XMS_ITS ---
Author Organization [facility] Address [address] [place] [address] Care Team Providers Care Siding Mechanic Name Role Phone TATIANA MORGAN MD Primary Care Provider Unavaila Broderick Caballero Unavailable [phone] ALLERGIES Allergen (clinical drug ingredient) Drug/Non Drug [...] Date Provider Diagnosis [facility] [address] [facility] [place] [address] 08/18/2023 Broderick Rivera Radiculopathy, cervical region M54.12 ; Radiculopathy, cervicothoracic region M54.13 ; Spinal stenosis, cervical region M48.02 ; Osseous stenosis of neural canal of cervical region M99.31 ; terminal block assembler (current) use of anticoagulants Z79.01 ; Spondylosis without myelopathy or radiculopathy, cervical region M47.812 ; Spondylosis without myelopathy or radiculopathy, cervicothoracic region M47.813 ; Spondylolisthesis, cervical region M43.12 ; Primary osteoarthritis, unspecified shoulder M19.019 ; Pain in right shoulder M25.511 and Chronic pain syndrome G89.4 ASSESSMENTS Encounter Date Diagnosis Assessment Notes Treatment Notes Treatment Clinical Notes Section Notes 08/18/2023 Radiculopathy, cervical region (ICD-10 - M54.12) 08/18/2023 Radiculopathy, cervicothoracic region (ICD-10 - M54.13) 08/18/2023 Spinal stenosis, cervical region (ICD-10 - M48.02) 08/18/2023 Osseous stenosis of neural canal of cervical region (ICD-10 - M99.31) 08/18/2023 [facility] (current) use of anticoagulants (ICD-10 - Z79.01) 08/18/2023 Spondylosis without myelopathy or radiculopathy, cervical region (ICD-10 - M47.812) 08/18/2023 Spondylosis without myelopathy or radiculopathy, cervicothoracic region (ICD-10 - M47.813) 08/18/2023 Spondylolisthesis, cervical region (ICD-10 - M43.12) 08/18/2023 Primary osteoarthritis, unspecified shoulder (ICD-10 - M19.019) 08/18/2023 Pain in right shoulder (ICD-10 - M25.511) 08/18/2023 Chronic pain syndrome (ICD-10 - G89.4) 08/18/2023 Other The above-named [...] Notes * Examination Category Sub-Category Detail Notes Category Not es Examination/ Pre-Anesthesia Assessment General: The patient is alert and oriented X 3 in moderate distress secondary to [...] right. There is 4 out of 5 cork mixer strength on the right as well as [...] of Present Illness) Category Sub-Category Detail Notes Category Notes Pain Management Radiographic Imaging X-ray of [...] Mild biceps tendinopathy. Small glenohumeral joint effusion X-ray of the bilateral shoulders done on [...] mild cord flattening and bilateral foraminal stenosis Assessment and Follow-up: Follow-up Plan documen rich:: Yes [facility] Quality 2020: [facility] Documented:: Compliant
--- OUTSIDE RECORDS SUMMARY | 2024-12-10 10:15 | XMS_ITS | Patient Health Record ---
Author Organization [facility] Address [address] [place] [address] [place] [address] Care Team Providers Care Cement Car Dumper Name Role Phone TATIANA MORGAN MD Primary Care Provider Unavaila Broderick Caballero Unavailable [phone] ALLERGIES Allergen (clinical drug ingredient) Drug/Non Drug [...] as needed Orally every 4 hrs Active PROBLEMS Problem Type ICD Code Onset Dates Problem Status W/U Status Risk SNOMED Code Notes Problem Chronic pain syndrome (G89.4) Active confirmed Chronic miladis n syndrome (749663561) Problem Primary osteoarthritis, unspecified shoulder (M19.019) Active confirmed Localized , primary osteoarthritis of the shoulder region (744286756) Problem Pain in right shoulder (M25.511) Active confirmed Pain of r ight shoulder region (finding) (2366466052) Problem Spondylolisthesis, cervical region (M43.12) Active confirmed Problem Spondylosis without myelopathy or radiculopathy, cervical region (M47.812) Active confirmed Cervical spondylosis without myelopathy (499383297) Problem Spondylosis without myelopathy or radiculopathy, cervicothoracic region (M47.813) Active confirmed Cervical spondylosis without myelopathy (261131904) Problem Spinal stenosis, cervical region (M48.02) Active confirmed Spinal stenosis in cervical region (05285769) Problem Radiculopathy, cervical region (M54.12) Active confirmed Cervical radiculopathy (48932184) Problem Radiculopathy, cervicothoracic region (M54.13) Active confirmed Cervical radiculopathy (67458000) Problem Osseous stenosis of neural canal of cervical region (M99.31) Active confirmed Spinal stenosis in cervical region (22668524) Problem 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) Active confirmed Connectiv e tissue and disc stenosis of intervertebral foramina (228000505) Problem terminal press operator (current) use of anticoagulants (Z79.01) Active confirmed Long-term curre nt use of anticoagulant (797756811) PLAN OF TREATMENT Pending Test Test Name Order Date MRI : Shoulder, right 05/05/2023 Insurance Providers Payer Name Payer Address Payer Phone Subscriber Number Group Number Insured Name Patient Relationship to Insured Coverage Start Date Coverage End Date [facility] MEDICARE ADVANTAGE [address] [place] [address] [phone] [id number] ELIZABETH BROOKS Self - patient is the insured MEDICAL (GENERAL) HISTORY Medical History History ICD Code Depression Surgical History Surgery Date(Month/Year) Right thumb surgery [facility] Joint OA replace ment 1997 Hospitalization History Reason Date(Month/Year) SEE SURGERIES ABOVE
--- OUTSIDE RECORDS SUMMARY | 2024-12-10 10:15 | XMS_ITS ---
Author Organization [facility] Address [address] [facility] [address] Care Team Providers Care Sales Market Leader Name Role Phone TATIANA MORGAN MD Primary Care Provider Unavaila Broderick Caballero Unavailable [phone] ALLERGIES Allergen (clinical drug ingredient) Drug/Non Drug [...] Date Provider Diagnosis [facility] [address] [facility] [place] [address] 07/19/2023 Broderick Rivera Radiculopathy, cervical region M54.12 ; Radiculopathy, cervicothoracic region M54.13 ; Spinal stenosis, cervical region M48.02 ; Osseous stenosis of neural canal of cervical region M99.31 ; [facility] (current) use of anticoagulants Z79.01 ; Spondylosis without myelopathy or radiculopathy, cervical region M47.812 ; Spondylosis without myelopathy or radiculopathy, cervicothoracic region M47.813 ; Spondylolisthesis, cervical region M43.12 ; Primary osteoarthritis, unspecified shoulder M19.019 ; Pain in right shoulder M25.511 and Chronic pain syndrome G89.4 ASSESSMENTS Encounter Date Diagnosis Assessment Notes Treatment Notes Treatment Clinical Notes Section Notes 07/19/2023 Radiculopathy, cervical region (ICD-10 - [...] of cervical region (ICD-10 - M99.31) 07/19/2023 watermaster (current) use of anticoagulants (ICD-10 - Z79.01) 07/19/2023 Spondylosis without myelopathy or radiculopathy, cervical region (ICD-10 - M47.812) 07/19/2023 Spondylosis without myelopathy or radiculopathy, cervicothoracic region (ICD-10 - M47.813) 07/19/2023 Spondylolisthesis, cervical region (ICD-10 - M43.12) 07/19/2023 Primary osteoarthritis, unspecified shoulder (ICD-10 - M19.019) 07/19/2023 Pain in right shoulder (ICD-10 - M25.511) 07/19/2023 Chronic pain syndrome (ICD-10 - G89.4) 07/19/2023 Other The above-named [...] As a result of our discussion, Dr. iRvera has determined the above assessment and directed [...] right. There is 4 out of 5 engineering instructor strength on the right as well as [...] foraminal stenosis Assessment and Follow-up: Follow-up Plan documediane rich:: Yes [facility] Quality 2020: [facility] Documented:: Compliant
--- OUTSIDE RECORDS SUMMARY | 2024-12-10 10:15 | XMS_ITS | Data Portability ---
Author Organization [facility], Main Office Address [address] [place] [address] Care Team Providers Care Hydro Operator Name Role Phone TATIANA MORGAN Primary Care [...] DO Not Attach Compendium, Do Not Delete/merge, [id number] 09:46:27 Surgeries None recorded. Imaging None recorded. Medication Orders Kenalog 10 mg/mL suspension for injection 2022 023 [email or web address] #[id number], [address], [id number], 3 10:19:22 ropivacaine (PF) 5 mg/mL (0.5 %) injection solution 2022 023 [email or web address] #[id number], [address] [facility] [address] [place] [address], [id number], 3 10:19:22 Patient TargetsNo targets recorded. Patient InstructionsNo instructions recorded. Reason for Referral None Reported. Results Created Date Observation Date Name Description Value Unit Range Abnormal Flag Note LastModifiedBy Organization Detail LastModifiedTime 12/22/19 23 10/27/2022 XR, wrist , 3 or more view No observ ation record ed. [email or web address] Not Available 2022 10:02:27 Result Notes None recorded. Problems Name Problem SNOMED Code Status Onset Date Resolution Date Notes Provider Name and Address Organization Details Recorded Time Pain in right hand 4517250879228 09 Active 2022 Marilyn Schmidt moreno [facility] 09:45:42 Extensor tenosynovit is of wrist 195774496 Active 2022 Arden Haji MD [address] [address], [place], [address], [facility] 09:49:53 Mass of hand 587390123 Active 2022 Arden Haji MD [address] [facility] [address], [place], [address], [employer] 09:50:25 Problem Notes None recorded. Medical Equipment [...] suspension for injection in office 2022 active [facility]: 0003- 0494- 20 Not Available Not Available Not Available methylpredni solone 4 mg tablets in a dose pack FOLLOW PACKAGE DIRECTIONS active Not Available Not Available N ot Available ropivacaine (PF) 5 mg/mL (0.5 %) injection solution in office 2022 active [facility] [address]1015 -064- 01 Not Available Not Available Not Available Vitals Date Recorded Body height Body mass index (BMI) Body weight Provider Name and Address Organization Details Last Updated DateTime 12/21/2022 154.94 cm 28.3 kg/m2 84609.86 g [place]ANDY Mc[place] [facility] 12/21/2022 09:23:30 Social History Question Answer Notes LastModified by Organizat ion Details LastModified Time Tobacco Smoking Status Unknown If Ever Smoked RANDY Mcbride [facility] 12/21/2022 09:24:25 What Was The Date Of Your Most Recent Tobacco Screening? 12/21/2022 [email or web address] Information not available 12/21/2022 Sex: Unknown Functional Status Question Answer Note LastModified by Organization D etails LastModified Time What is your level of alcohol consumption? None [email or web address] Information not available 12/21/2022 Mental Status None recorded. Family History Relationship Description Onset Age of this Age Resolved Age Notes LastModified by Organization Details LastModified Time Father Heart disease [email or web address] Not available 2022 09:24:02 Medical History No medical history recorded. Gynecological HistoryNo gynecological history recorded. Obstetrics History GPAL:G 0 P 0 0 0 0 Past Encounters Encounter ID Performer Location Encounter Start Date Encounter Closed Date Diagnosis/Indication Diagnosis SNOMED-CT Code Diagnosis ICD10 Code Diagnosis Note [id number] Arden Haji MD [facility] [address] [place] [address] 12/21/2022 09:10:55 12/21/2022 10:04:20 Pain in right hand 7663163083 [address] M79.641 Extensor tenosynovitis of wrist 222117944 M65.839 under sterile technique standard protocol injected the 6th extensor compartmen t 2 cc xylocaine 2 cc Kenalog liquid went up the sheath nicely. Provided her with a well fitted right wrist brace. We will see her back in a few weeks if no improvemen t of the [facility] tenosynovi tis. Mass of hand 314310192 R 22.31 we aspirated the mass it [...] Recorded Advance Directives Directive None Recorded Payers Insurance Date Sequence Insurance Name Policy Number Policy Malone Covered Member ID Malone Member ID Guarantor Name 02/19/2023 1 [facility] (MEDICARE REPLACEMENT/A DVANTAGE - HMO) [id number] Eleni Cormier [id number] Eleni Cormier Notes Date Note Type Note [...] work and home activity Arden Haji MD [address] [place] [address], [facility] [address], [place], [address], [facility] 12/21/2022 09:51:07 OBGyn Episode No OBEpisode recorded.
--- OUTSIDE RECORDS SUMMARY | 2024-12-10 10:15 | XMS_ITS | Clinical Summary ---
Author Organization [facility] [place] Address [address] [place] [address] Care Team Providers Care Land Survey Technician Name Role Phone No, Physician Primary Care Provider [phone] Allergies No known active allergies Medications No known medications Active Problems No known active problems Social History Tobacco Use Types Packs/Day Years Used Date Smoking Tobacco: Never Personal Safety Answer Date Recorded Getting School Help Needed Not on file 09/08 Comments Unknown Sex and Gender Information Value Date Recorded Sex Assigned at Not on file 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
--- OUTSIDE RECORDS SUMMARY | 2024-12-10 10:16 | XMS_ITS | Referral Summary ---
Author Organization [facility] [place] [facility] Address [address] [place] [address] Care Team Providers Care Body Hanger Name Role Phone No, Physician Primary Care Provider [phone] Allergies No known active allergies Medications No known medications Active Problems No known active problems Social History Tobacco Use Types Packs/Day Years Used Date Smoking Tobacco: Never Personal Safety Answer Date Recorded Getting School Help Needed Not on file 09/08 Comments Unknown Sex and Gender Information Value Date Recorded Sex Assigned at Not on file Legal Sex Female 9:57 AM NURSE TECH Gender Identity Not on file Sexual Orientation [...] Plan of Treatment [place] [address] [place] [address] CORE Care Teams Body Hanger Relationship Specialty Start Date End Date No, Physician PCP - General 11/08/19
== END 2024-12-10 09:37 | disposition home or self-care (01) ==
PROVIDERS: PCP Family Medicine
DX: R79.89 Other specified abnormal findings of blood chemistry (principal); K76.0 Fatty (change of) liver, not elsewhere classified
CPT/HCPCS: 76705

== ENCOUNTER 2025-01-11 00:58 | Day surgery (SDC) | payer MEDICARE, SELFPAY ==
[2025-01-02 14:27] VITALS: BMI 28.5
--- OUTSIDE RECORDS SUMMARY | 2025-01-11 01:01 | XMS_ITS | Clinical Summary ---
Author Organization [facility] [place] Address [address] [place] [address] Care Team Providers Care Examiner Of Currency Name Role Phone No, Physician Primary Care Provider Allergies No known active allergies Medications No known medications Active Problems No known active problems Social History Tobacco Use Types Packs/Day Years Used Date Smoking Tobacco: Never Personal Safety Answer Date Recorded Getting School Help Needed Not on file 09/08 Comments Unknown Sex and Gender Information Value Date Recorded Sex Assigned at Not on file 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
--- OUTSIDE RECORDS SUMMARY | 2025-01-11 01:01 | XMS_ITS ---
Author Organization [facility] Address [address] [place] [address] Care Team Providers Care Building Carpenter Name Role Phone TATIANA MORGAN MD Primary Care Provider Unavaila Broderick Caballero Unavailable [phone] ALLERGIES Allergen (clinical drug ingredient) Drug/Non Drug [...] Diagnosis [facility] [address] [facility] [place] [address] 08/18/2023 Broderick Rivera Radiculopathy, cervical region M54.12 ; Radiculopathy, cervicothoracic region M54.13 ; Spinal stenosis, cervical region M48.02 ; Osseous stenosis of neural canal of cervical region M99.31 ; middle or intermediate school principal (current) use of anticoagulants Z79.01 ; Spondylosis [...] of cervical region (ICD-10 - M99.31) 08/18/2023 care home (current) use of anticoagulants (ICD-10 - Z79.01) [...] right. There is 4 out of 5 sweater designer strength on the right as well as [...]
--- OUTSIDE RECORDS SUMMARY | 2025-01-11 01:01 | XMS_ITS | Patient Health Record ---
Author Organization [facility] Address [address] [place] [address] [place] [address] Care Team Providers Care Wrapper Leaf Inspector Name Role Phone TATIANA MORGAN MD Primary Care Provider Unavaila Broderick Caballero Unavailable [phone] ALLERGIES Allergen (clinical drug ingredient) Drug/Non Drug [...] (G89.4) Active confirmed Chronic miladis n syndrome (604469494) Problem Primary osteoarthritis, unspecified shoulder (M19.019) Active confirmed Localized , primary osteoarthritis of the shoulder region (620520146) Problem Pain in right shoulder (M25.511) Active confirmed Pain of r ight shoulder region (finding) (3757731699) Problem Spondylolisthesis, cervical region (M43.12) Active confirmed Acquired spondylolisthesis (378425338) Problem Spondylosis without myelopathy or radiculopathy, cervical region (M47.812) Active confirmed Cervical spondylosis without myelopathy (192158861) Problem Spondylosis without myelopathy or radiculopathy, cervicothoracic region (M47.813) Active confirmed Cervical spondylosis without myelopathy (886420014) Problem Spinal stenosis, cervical region (M48.02) Active confirmed Spinal stenosis in cervical region (28363934) Problem Radiculopathy, cervical region (M54.12) Active confirmed Cervical radiculopathy (48148136) Problem Radiculopathy, cervicothoracic region (M54.13) Active confirmed Cervical radiculopathy (15568082) Problem Osseous stenosis of neural canal of cervical region (M99.31) Active confirmed Spinal stenosis in cervical region (95562918) Problem 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) Active confirmed Connectiv e tissue and disc stenosis of intervertebral foramina (229971568) 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) Active confirmed Long-term curre nt use of anticoagulant (002785891) PLAN OF TREATMENT Pending Test Test Name Order Date MRI : Shoulder, right 05/05/2023 Insurance Providers Payer Name Payer Address Payer Phone Subscriber Number Group Number Insured Name Patient Relationship to Insured Coverage Start Date Coverage End Date [facility] MEDICARE ADVANTAGE [address] [place] [address] [id number] ELIZABETH BROOKS Self - patient is the insured MEDICAL (GENERAL) HISTORY Medical History History ICD Code Depression Surgical History Surgery Date(Month/Year) Right thumb surgery [facility] Joint OA replace ment 1997 Hospitalization History Reason Date(Month/Year) SEE SURGERIES ABOVE
--- OUTSIDE RECORDS SUMMARY | 2025-01-11 01:01 | XMS_ITS | Data Portability ---
Author Organization [place] [facility] [employer], Main Office Address [address] [place] [address] Care Team Providers Care Mortgage Protection Sales Name Role Phone TATIANA MORGAN Primary Care Provider TATIANA MORGAN Referring Provider [phone] Assessment No assessment recorded. Plan of Treatment [...] DO Not Attach Compendium, Do Not Delete/merge, [id number] 3 09:46:27 Surgeries None recorded. Imaging None recorded. Medication Orders Kenalog 10 mg/mL suspension for injection 2022 023 [employer] [id number], [address] [place] [address], [id number], 3 10:19:22 ropivacaine (PF) 5 mg/mL (0.5 %) injection solution 2022 023 [employer] [facility][id number], [address] [place] [address], [id number], 3 10:19:22 Patient TargetsNo targets recorded. Patient InstructionsNo instructions recorded. Reason for Referral None Reported. Results Created Date Observation Date Name Description Value Unit Range Abnormal Flag Note LastModifiedBy Organization Detail LastModifiedTime 12/22/19 23 10/27/2022 XR, wrist , 3 or more view No observ ation record ed. [email or web address] Not Available 2022 10:02:27 Result Notes None recorded. Problems Name Problem SNOMED Code Status Onset Date Resolution Date Notes Provider Name and Address Organization Details Recorded Time Pain in right hand 7110658766927 09 Active 2022 Marilyn Schmidt moreno [facility] 09:45:42 Extensor tenosynovit is of wrist 053661678 Active 2022 Arden Haji MD [address] [facility], [place] [address], [place], [address], [facility] 09:49:53 Mass of hand 296052936 Active 2022 Arden Haji MD [address] [facility], [place] [address], [place], [address], [facility] 09:50:25 Problem Notes None recorded. Medical Equipment [...] suspension for injection in office 2022 active [facility]: 0003- [phone] 20 Not Available Not Available Not Available methylpredni solone 4 mg tablets in a dose pack FOLLOW PACKAGE DIRECTIONS active Not Available Not Available N ot Available ropivacaine (PF) 5 mg/mL (0.5 %) injection solution in office 2022 active [facility] [phone]- [phone] Not Available Not Available Not Available Vitals Date Recorded Body height Body mass index (BMI) Body weight Provider Name and Address Organization Details Last Updated DateTime 12/21/2022 154.94 cm 28.3 kg/m2 16561.86 g RANDY Mcbride [facility] 12/21/2022 09:23:30 Social History Question Answer Notes LastModified by Organizat ion Details LastModified Time Tobacco Smoking Status Unknown If Ever Smoked RANDY Mcbride [facility] 12/21/2022 09:24:25 What Was The Date Of Your Most Recent Tobacco Screening? 12/21/2022 [email or web address] Information not available 12/21/2022 Sex: Unknown Functional Status Question Answer Note LastModified by Organization D etails LastModified Time What is your level of alcohol consumption? None [email or web address] Information not available 12/21/2022 Mental Status None recorded. Family History Relationship Description Onset Age of this Age Resolved Age Notes LastModified by Organization Details LastModified Time Father Heart disease [email or web address] Not available 2022 09:24:02 Medical History No medical history recorded. Gynecological HistoryNo gynecological history recorded. Obstetrics History GPAL:G 0 P 0 0 0 0 Past Encounters Encounter ID Performer Location Encounter Start Date Encounter Closed Date Diagnosis/Indication Diagnosis SNOMED-CT Code Diagnosis ICD10 Code Diagnosis Note [id number] Arden Haji MD [facility] [address] [place] [address] 12/21/2022 09:10:55 12/21/2022 10:04:20 Pain in right hand 0595868651 70557 M79.641 Extensor tenosynovitis of wrist 629563960 M65.839 under sterile technique standard protocol injected the 6th extensor compartmen t 2 cc xylocaine 2 cc Kenalog liquid went up the sheath nicely. Provided her with a well fitted right wrist brace. We will see her back in a few weeks if no improvemen t of the [facility]U tenosynovi tis. Mass of hand 833894551 R 22.31 we aspirated the mass it [...] Malone Member ID Guarantor Name 02/19/2023 1 [facility] (MEDICARE REPLACEMENT/A DVANTAGE - HMO) [id number] Eleni Cormier [id number] Eleni Cormier Notes Date Note Type Note [...] work and home activity Arden Haji MD [address] [place] [address], [facility] [address], [place], [address], [place] [facility] 12/21/2022 09:51:07 OBGyn Episode No OBEpisode recorded.
--- OUTSIDE RECORDS SUMMARY | 2025-01-11 01:01 | XMS_ITS | Referral Summary ---
Author Organization [facility] Address [address] [place] [address] Care Team Providers Care Hack Saw Operator Name Role Phone No, Physician Primary Care Provider [phone] Allergies No known active allergies Medications No known medications Active Problems No known active problems Social History Tobacco Use Types Packs/Day Years Used Date Smoking Tobacco: Never Personal Safety Answer Date Recorded Getting School Help Needed Not on file 09/08 Comments Unknown Sex and Gender Information Value Date Recorded Sex Assigned at Not on file Legal Sex Female 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
--- OUTSIDE RECORDS SUMMARY | 2025-01-11 01:01 | XMS_ITS ---
Author Organization [facility] Address [address] [facility] [place] [address] Care Team Providers Care Prospecting Observer Name Role Phone TATIANA MORGAN MD Primary Care Provider Unavaila Broderick Caballero Unavailable [phone] ALLERGIES Allergen (clinical drug ingredient) Drug/Non Drug [...] Date Provider Diagnosis [facility] [address] 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 There is 4 out of 5 manager of training and development strength on the right as well as [...]
[2025-01-11 07:20] VITALS: BP 131/66; PULSE 62; RESP 18; TEMP 36.7; O2SAT 98; BMI 29.3
[2025-01-11] MEDS: LACTATED RINGERS 1,000 ML 150 ML IV CONT (07:41)
--- NOTE | 2025-01-11 07:46 | WPDANESEPPF ---
Anes - Initial Pre Proc Eval Procedure: Operation Date: 01/11/25 08:30 Proposed Procedures p Screening Colonoscopy - Sukhwinder Salinas MD Date/Time: 01/11/25 07:46 Surgeon: Sukhwinder Salinas MD Pre Op Diagnosis: Encounter for screening for malignant neoplasm of Patient Data Age: 69 Gender: F Height: 1.55 m Weight: 70.5 kg Last Vital Signs Temp 36.7 C 01/11/25 07:20 Pulse 62 01/11/25 07:20 Resp 18 01/11/25 07:20 BP 131/66 01/11/25 07:20 Pulse Ox 98 01/11/25 07:20 O2 Del Method Room Air 01/11/25 07:20 Allergies Allergy/AdvReac Type Severity Reaction Status Date / Time metronidazole Allergy Severe VERTIGO, Verified 01/11/25 07:28 NAUSEA, VOMIT,RINGING OF EARS doxycycline Allergy Unknown Unknown Verified 01/11/25 07:28 Home Medications ?Medication ?Instructions ?Recorded ?Confirmed ?Type omega 3-les-dcc-fish oil 1,000 mg 1 cap PO BID 01/24/24 01/11/25 History (120 mg-180 mg) capsule (Fish Oil) propranolol 60 mg capsule,24 See Rx Instructions .Route 08/02/24 01/11/25 Rx hr,extended release .COMPLEX #100 caps sodium sul 1.479 gram-potas ch See Rx Instructions PO PER PKG DIR 09/19/24 01/11/25 Rx 0.188 gram-magnes sul 0.225 gram #24 tabs tablet (Sutab) cyclobenzaprine 5 mg tablet 5 mg PO TID PRN muscle spasm #60 11/05/24 01/02/25 Rx tabs estradiol 0.01% (0.1 mg/gram) 1 g vaginal WEEKLY #42.5 grams 12/17/24 01/11/25 Rx vaginal cream Patient hx anesthesia problems: none Family hx anesthesia problems: none Results Review: All pre-operative results and documents have been reviewed as part of the pre-operative evaluation. [facility] Past Medical History Medical History Vertigo PONV (postoperative nausea and vomiting) Cervical spondylosis with radiculopathy Impingement syndrome of shoulder Arthritis of left shoulder region Arthritis of right shoulder region Impacted cerumen of left ear Paresthesia of left arm Left arm pain History of depression Elevated liver enzymes Hyperglyceridemia, pure Thyroid nodule Migraines Surgical History Surgical History History of hysterectomy Hx of hand surgery Social History Social History Social History: Smoking packs per day: 0.75 Smoking cigarettes per day: 15.0 Years smoked: 40 Smoking pack-years: 30.00 Smoking status: Never smoker Tobacco type: cigarettes Second hand tobacco smoke exposure: No Smoking end date: 05/08/13 Alcohol intake: never Drinks per week: 2 Alcohol use details: Liquor Substance use: never Substance use type: does not use Do You Feel Safe in your Home?: Yes Lack of Transportation: No Lack of Food: Never True Current Housing: I Have Housing Concerned About Future Housing: No Difficulty Paying Gas/Electric Bills: No Difficulty Paying for Meds: No Currently Unemployed: No Education: Bachelor's Degree Difficulty w/ Childcare or Family Care: No Living arrangements: alone Occupation/Education: occupation Gender identity (if verbalized by the patient): Female Sexual Orientation (if Verbalized by the Patient): Straight or Heterosexual Spiritual care concerns: No Anes - Eval Final PreProcedure Day of Procedure 01/11/25 07:46 Patient weight: overweight Heart: regular rate and rhythm Lungs: clear to auscultation Airway: Mallampati scale class II Neurological: alert and oriented Last oral intake: >/= 8 hours ASA classification: II Emergent: no Anesthetic plan: proceed Anesthesia type and monitoring: general GIVS and standard monitoring Results Review: All pre-operative results and documents have been reviewed as part of the pre-operative evaluation. Informed Consent: The patient's anesthetic plan and its attendant risks and benefits were discussed with the patient/family/POA. Questions were solicited and answers provided to the satisfaction of the patient/family/POA.
--- NOTE | 2025-01-11 08:15 | PM.IMHP ---
H&P: HPI History of Present Illness Date/Time: 01/11/25 08:15 Chief Complaint: Screening colonoscopy Narrative: This is the patient's 2nd colonoscopy. There are no GI symptoms and there is no family history of colorectal cancer. Review of Systems Review of Systems: All systems reviewed & are unremarkable except as noted in HPI and below PMFSH Past Medical History Medical History Vertigo PONV (postoperative nausea and vomiting) Cervical spondylosis with radiculopathy Impingement syndrome of shoulder Arthritis of left shoulder region Arthritis of right shoulder region Impacted cerumen of left ear Paresthesia of left arm Left arm pain History of depression Elevated liver enzymes Hyperglyceridemia, pure Thyroid nodule Migraines Surgical History Surgical History History of hysterectomy Hx of hand surgery Social History Social History Social History: Smoking packs per day: 0.75 Smoking cigarettes per day: 15.0 Years smoked: 40 Smoking pack-years: 30.00 Smoking status: Never smoker Tobacco type: cigarettes Second hand tobacco smoke exposure: No Smoking end date: 05/08/13 Alcohol intake: never Drinks per week: 2 Alcohol use details: Liquor Substance use: never Substance use type: does not use Do You Feel Safe in your Home?: Yes Lack of Transportation: No Lack of Food: Never True Current Housing: I Have Housing Concerned About Future Housing: No Difficulty Paying Gas/Electric Bills: No Difficulty Paying for Meds: No Currently Unemployed: No Education: Bachelor's Degree Difficulty w/ Childcare or Family Care: No Living arrangements: alone Occupation/Education: occupation Gender identity (if verbalized by the patient): Female Sexual Orientation (if Verbalized by the Patient): Straight or Heterosexual Spiritual care concerns: No Meds Home Medications and Allergies Home Medications ?Medication ?Instructions ?Recorded ?Confirmed ?Type omega 1-nvs-syf-fish oil 1,000 mg 1 cap PO BID 01/24/24 01/11/25 History (120 mg-180 mg) capsule (Fish Oil) propranolol 60 mg capsule,24 See Rx Instructions .Route 08/02/24 01/11/25 Rx hr,extended release .COMPLEX #100 caps sodium sul 1.479 gram-potas ch See Rx Instructions PO PER PKG DIR 09/19/24 01/11/25 Rx 0.188 gram-magnes sul 0.225 gram #24 tabs tablet (Sutab) cyclobenzaprine 5 mg tablet 5 mg PO TID PRN muscle spasm #60 11/05/24 01/02/25 Rx tabs estradiol 0.01% (0.1 mg/gram) 1 g vaginal WEEKLY #42.5 grams 12/17/24 01/11/25 Rx vaginal cream Allergies Allergy/AdvReac Type Severity Reaction Status Date / Time metronidazole Allergy Severe VERTIGO, Verified 01/11/25 07:28 NAUSEA, VOMIT,RINGING OF EARS doxycycline Allergy Unknown Unknown Verified 01/11/25 07:28 Vital Signs Vital Signs - 24 hr 01/11/25 07:20 Temperature 98.1 F Pulse Rate 62 Respiratory Rate 18 Blood Pressure 131/66 Pulse Oximetry 98 Oxygen Delivery Room Air Exam Const: General: cooperative and healthy appearing Resp: Effort & Inspection: normal respiratory effort and able to speak in complete sentences Auscultation: clear to auscultation bilaterally Cardio: Rate: regular rate Rhythm: regular rhythm GI: Inspection: normal to inspection GI Palp: No No hepatosplenomegaly present Auscultation: normal bowel sounds Rectal Exam: deferred Skin: General skin exam: normal color Psych: Appearance: grossly normal Mental Status: mental status grossly normal Assessment and Plan Assessment and plan (1) Encounter for screening colonoscopy: Code(s): Z12.11 - Encounter for screening for malignant neoplasm of colon Status: Acute Assessment and Plan: The patient is deemed a good candidate for the procedure. Consent signed. Will proceed.
--- NOTE | 2025-01-11 08:32 | S_PTH ---
PATIENT: Eleni Cormier LOC: [facility] U#:[id number] AGE/SX: 69/F ROOM: RE01/11/[address]: Sukhwinder Salinas MD : 1955 BED: DIS: 01/11/2025 SPEC #: [id number] RECD: 01/11/25 10:12 STATUS: LUZ MARIA REQ #: [id number] SUBHASH: 01/11/25 08:[address]: Sukhwinder Salinas DEPT: [facility] Surgical RECD BY: Razia Pacheco ENTERED: 01/11/25 10:12 SP TYPE: Surgical OTHR DR: Greg Becker MD Tissues: A - Colon Polypectomy Procedures: Hematoxylin and Eosin Stain Gross and Microscopic Level 4
[2025-01-11 08:36] VITALS: BP 105/55; PULSE 60; RESP 17; O2SAT 95
[2025-01-11 08:46] VITALS: BP 104/62; PULSE 56; RESP 16; O2SAT 95
[2025-01-11 08:56] VITALS: BP 123/79; PULSE 60; RESP 20; O2SAT 99
[2025-01-11] MEDS: ONDANSETRON INJ 4 MG/2 ML VIAL IV PUSH (08:59)
--- NOTE | 2025-01-11 09:10 | SUR.PHASEII ---
Patient nauseated. Received orders for Zofran 4mg IV Push once from Dr. Michaels.
== END 2025-01-11 09:16 | disposition home or self-care (01) ==
PROVIDERS: PCP Family Medicine; Referring Provider Physician Assistant; Visit Provider Internal Medicine Gastroenterology
PROC: 0DJD8ZZ Inspection of Lower Intestinal Tract, Via Natural or Artificial Opening Endoscopic (ICD-10-PCS; CPT 45378; principal; 2025-01-11 08:30)
DX: Z12.11 Encounter for screening for malignant neoplasm of colon (principal); D12.2 Benign neoplasm of ascending colon; Z87.891 Personal history of nicotine dependence
CPT/HCPCS: 45385; 88305; J2003; J2405; J2704; J7120

== ENCOUNTER 2025-06-21 07:02 | Outpatient (CLI) | payer MEDICARE, SELFPAY ==
--- NOTE | ~2025-06-21 | DEXA_ITS ---
Bone Density Report Name: ELIZABETH BROOKS Age: 69 Sex: Female Ethnicity: White Date of : 1955 Indication: osteopenia; parental hip fracture; hysterectomy; Referring Provider: YOLANDA ORDONEZ Study: Bone densitometry was performed. Exam Date: June 21, 2025 Accession number: [id number] Bone Density: Region BMD T-score Z-score Classification AP Spine(L1-L4) 0.904 -1.3 0.8 Osteopenia Femoral Neck (Left) 0.601 -2.2 -0.5 Osteopenia Total Hip (Left) 0.889 -0.4 1.0 Normal Femoral Neck (Right) 0.657 -1.7 0.0 Osteopenia Total Hip (Right) 0.936 0.0 1.4 Normal Total Hip Mean 0.913 -0.2 1.2 Normal World Health Organization criteria for BMD impression classify patients as: Normal (T-score at or above -1.0), Osteopenia (T-score between -1.0 and -2.5), or Osteoporosis (T-score at or below -2.5). 10-year Fracture Risk(1): Major Osteoporotic Fracture 20% Hip Fracture 4.9% Reported Risk Factors: [place] (), Neck BMD=0.601, BMI=27.8, parental fracture (1) FRAX(R) Version 3.08. Fracture probability calculated for an untreated patient. Fracture probability may be lower if the patient has received treatment. Previous Exams: Region Exam Age BMD T-score BMD Change BMD Change Date g/cm2 vs Baseline vs Previous AP Spine (L1-L4) 06/21/2025 69 0.904 -1.3 -0.038 (-4.0%) -0.038 (-4.0%) 04/18/2023 67 0.941 -1.0 Total Hip(Left) 06/21/2025 69 0.889 -0.4 0.080 (10.0%)* 0.080 (10.0%)* 04/18/2023 67 0.809 -1.1 Total Hip(Right) 06/21/2025 69 0.936 0.0 0.115 (14.0%)* 0.115 (14.0%)* 04/18/2023 67 0.821 -1.0 *Denotes significance at 95% confidence level, LSC for AP Spine = 0.022 g/cm2, LSC for Total Hip = 0.027 g/cm2 Clinical Information Provided by Patient: Parent has had a hip fracture Has used the following medications: Vitamin D, Calcium Has the following medical conditions: Hysterectomy Patient maximum height was 62 Menopause Age: 29 No regular weight bearing exercise Does not regularly consume dairy products Drinks caffeinated beverages Onset of menses at age 14 Number of children 2 Impression: The patient has low bone mass, based on the Left Femoral Neck T-score. The patient has an estimated ten-year risk of hip fracture of 4.9% and an estimated ten-year risk of major fracture of 20%, based on the WHO FRAX algorithm. The patient has risk factors, including: parental hip fracture. The BMD for the AP Spine (L1-L4) decreased, changing by -4.0% since the last DXA exam. Discussion: BONE DENSITY IS LOW AT ONE OR MORE SKELETAL SITES. THE PATIENT'S BMD AND CLINICAL RISK FACTORS CONTRIBUTE TO THIS PATIENT'S HIGH RISK OF FRACTURE. This patient's lowest T-score is low at one or more skeletal sites. It meets the World Health Organization's (WHO) criteria for ?low bone mass? (T-score between -1.0 and -2.5). The patient's 10-year risk of hip fracture and 10 year risk of a major osteoporotic fracture as calculated by FRAX exceeds the threshold where pharmacological therapy is recommended by the National Osteoporosis Foundation (NOF). However, all treatment decisions require clinical judgment and consideration of individual patient factors, including patient preferences, comorbidities, previous drug use, risk factors not captured in the FRAX model (e.g., frailty, falls, vitamin D deficiency, increased bone turnover, interval significant decline in bone density) and possible under or overestimation of fracture risk by FRAX. The patient should follow a healthful lifestyle (good nutrition with adequate calcium and vitamin D, and appropriate weight-bearing exercise). Follow-Up: Consider a repeat BMD and Vertebral Fracture Assessment (VFA) exam in 2 years or sooner if medically necessary, to reassess this patient's status. Reported by: CHRISTOPHER on 06/21/2025 7:55:00 AM. Reviewed, dictated and finalized at location A.
--- NOTE | ~2025-06-21 | MM_ITS ---
EXAMINATION: MM screening [facility] BI w [email or web address] HISTORY: Screening TECHNIQUE: Craniocaudal and mediolateral oblique 3-D tomosynthesis images were obtained and synthetic 2-D images were generated. CAD analysis was submitted and interpreted. COMPARISON: Comparison to multiple prior studies sequentially, with oldest reviewed study dated 12/20/2020. BREAST PARENCHYMAL COMPOSITION: Not dense: There are scattered areas of fibroglandular density. FINDINGS: There is no evidence of suspicious mass, calcification, or architectural distortion to suggest malignancy in either breast. There has been no suspicious interval change. IMPRESSION: 1. No mammographic evidence of malignancy. 2. Recommend routine screening mammography in one year. BI-RADS Category 1: Negative Reviewed, dictated and finalized at location O. OR OSTEOPATHIC
== END 2025-06-21 07:03 | disposition home or self-care (01) ==
PROVIDERS: PCP Family Medicine; Visit Provider Physician Assistant
DX: Z12.31 Encounter for screening mammogram for malignant neoplasm of breast (principal); Z78.0 Asymptomatic menopausal state; M85.88 Other specified disorders of bone density and structure, other site; M85.852 Other specified disorders of bone density and structure, left thigh; M85.851 Other specified disorders of bone density and structure, right thigh
CPT/HCPCS: 77063; 77067; 77080